=== PATIENT | female | born 1995 ===

== ENCOUNTER → 2018-02-03 | Outpatient (CLI) | payer OTHER ==
[~2018-02-03] MED LIST: DOCU100C37 PO; FERR325T18 PO; IBUP-1780 PO; OXYC-465 PO
--- NOTE | 2018-02-03 17:58 | Diagnostic Imaging Report ---
PROCEDURE: US OB SINGLE FETUS <14 WKS. TECHNIQUE: Multiple real-time grayscale images were obtained over the gravid uterus in various projections. INDICATION: Normal . FINDINGS: There is a single live IUP of approximately 16 weeks 0 days gestation. heart rate was recorded at 142 beats per minute. The placenta appears to be developing anteriorly. Amniotic fluid volume is normal. No perigestational sac hemorrhage is seen. The adnexal evaluation was performed. Ovaries were not visualized. IMPRESSION: Single live IUP at approximately 16 weeks 0 days gestational age. The estimated date of confinement sonographically is 07/21/2018. Dictated by: Dictated on workstation # [id number]
== END ==
LOC: RAD 15:15
PROVIDERS: ATTEND Family Medicine
DX: Z34.92 Encounter for supervision of normal pregnancy, unspecified, second trimester (principal); Z3A.16 16 weeks gestation of pregnancy
CPT/HCPCS: 76801

== ENCOUNTER → 2018-02-28 | Outpatient (CLI) | payer OTHER ==
--- NOTE | 2018-02-28 16:46 | Diagnostic Imaging Report ---
INDICATION: Undergoing anatomical assessment during normal . TECHNIQUE: Multiple real-time grayscale images were obtained over the gravid uterus. COMPARISON: None FINDINGS: Single viable intrauterine currently in a variable presentation. Placenta along the anterior aspect without evidence for previa. Normal amount of amniotic fluid. The visualized anatomical structures appearing unremarkable. However, the spine was not able to adequately be assessed given positioning. Biometrical measurements are as follows: Biparietal 4.37 cm, age 19 weeks 2 days. Head circumference 17.08 cm, age 19 weeks 5 days. Abdominal circumference 14.75 cm, age 20 weeks 1 days. Femur length 3.12 cm, age 19 weeks 5 days. Sonographic estimate age: 19 weeks 5 days. Sonographic estimated date of delivery: . Estimated Weight: 315 gm (+/- 46 gm). LMP percentile: 36%. heart rate: 149 beats per minute. number: 1 of 1. Cervical length 5.5 cm. Maternal adnexa not visualized. IMPRESSION: 1. Single viable intrauterine currently in a variable presentation. Sonographic estimated age 19 weeks 5 days for an estimated date of delivery 07/20/2018. 2. No abnormality is demonstrated at this time. However, the spine is not well visualized given positioning. Dictated by: Dictated on workstation # [id number]
== END ==
LOC: RAD 12:47
PROVIDERS: ATTEND Obstetrics & Gynecology
DX: Z36.89 Encounter for other specified antenatal screening (principal); Z3A.19 19 weeks gestation of pregnancy
CPT/HCPCS: 76805

== ENCOUNTER 2018-07-16 11:24 | Outpatient (CLI) | payer OTHER ==
[~2018-07-16] VITALS: Ht 160 cm; Wt 90.3 kg
[2018-07-16] MEDS ORDERED: PREN1TAB79 PO (12:50)
[2018-07-18] MEDS ORDERED: IBUP-844 PO (07:26)
[2018-07-18] MEDS ORDERED: ACHD5005 PO (07:26)
[2018-07-18] MEDS ORDERED: DOCU100C37 PO (07:26)
== END 2018-07-16 13:00 | disposition home or self-care (01) ==
LOC: PREOP 11:24
PROVIDERS: ATTEND Obstetrics & Gynecology
DX: Z01.818 Encounter for other preprocedural examination (principal)

== ENCOUNTER 2018-07-18 05:52 | Inpatient (IN) | payer BC, MEDICAID ==
[~2018-07-18] VITALS: Ht 160 cm; Wt 99.0 kg
[2018-07-18] VITALS (9 sets, daily range): BP systolic 118–139; BP diastolic 62–92
[~2018-07-18 05:52] MED LIST changes: +CITRIC ACID/SOB CIT (BICITRA) 30 ML UDC ONE; +FAMOTIDINE 20MG/2ML IV (PEPCID) ONE; +METOCLOPRAMIDE INJ 10 MG/2 ML (REGLAN) ONE; +PREN1TAB79 PO; +ceFAZolin 2 GM/50 ML NS 50 ML ONE
--- OUTSIDE RECORDS SUMMARY | 2018-07-18 05:59 | XMS REPORT ---
Author Author BUDDY JOYCE Organization [facility] Address [address] [place] [address] Care Team Providers Care Supervisor In Charge Name Role Phone MARIA DEL CARMENMARKUSBUDDY Unavailable PROBLEMS Type Condition ICD9-CM Code UPI98-EA Code Onset Dates Condition Status SNOMED Code Assessment care, first , third trimester Z34.03 Nov Active 815606326 Assessment screening for streptococcus B Z36 Nov, Active 647359462 Assessment 36 weeks gestation of Z3A.36 Nov, Active 55466637 ALLERGIES No Known Allergies SOCIAL HISTORY No smoking Hx information available PLAN OF CARE VITAL SIGNS Height 63 in 2015-11-18 Weight 194.9 lbs 2015-11-18 Heart Rate 77 bpm 2015-11-18 Respiratory Rate 16 2015-11-18 BMI 34.525 kg/m2 2015-11-18 Blood pressure systolic 127 mmHg 2015-11-18 Blood pressure diastolic 68 mmHg 2015-11-18 MEDICATIONS Medication Instructions Dosage Frequency Start Date End Date Duration Status 28-0.8 MG Orally daily 1 24h Apr, Active Ferrous Sulfate 325 (65 Fe) MG Orally 2 times a day 1 tablet 12h Oct, 30 day(s) Active RESULTS Name Result Date Reference Range UA OB DIP (IN HOUSE) 2015-11-18 Glucose negative Protein negative CULTURE, GROUP B STREP (VAGINAL) 2015-11-18 Strep Gp B Culture Positive Negative PROCEDURES Procedure Date Ordered Related Diagnosis Body Site URINE-NO MICRO Nov 18, 2015 DETECT AGNT MULT, DNA, AMPLI Nov 18, 2015 Office Visit, Est Pt., Level 2 Nov 18, 2015 IMMUNIZATIONS No Known Immunizations
--- OUTSIDE RECORDS SUMMARY | 2018-07-18 05:59 | XMS REPORT ---
Author Author MARIA DEL CARMEN BUDDY [facility] Address [address] [place] [address] Care Team Providers Care Sub Master Name Role Phone MARIA DEL CARMENMARKUS YANGHANY Unavailable PROBLEMS Type Condition ICD9-CM Code UTU06-IA Code Onset Dates Condition Status SNOMED Code Problem History of section complicating O34.219 Active 825415361 Problem Subclinical hypothyroidism E03.9 Active 81362859 ALLERGIES No Information ENCOUNTERS Encounter Location Date Diagnosis [place] [address] [place] [id number] [place] [address] 49[address]- [address] Jan, care, subsequent in first trimester Z34.81 ; 12 weeks gestation of Z3A.12 ; History of section complicating O34.219 and Subclinical hypothyroidism E03.9 [place] [address] [place] [address] 37784- 6046 Dec, [place] [address] [place] [id number] [place] [address] 31387- 4939 Dec, Subclinical hypothyroidism E03.9 [place] [address] [place] [address] [id number] [place] [address] 01145- 8554 Dec, Normal in multigravida Z34.80 ; First trimester Z34.91 ; Encounter for immunization Z23 and 8 weeks gestation of Z3A.08 [place] [address] [place] [address] 97806- 5070 Nov, [place] [address] [place] [address] [id number] [place] [address] 98859- 6899 Nov, Encounter for test, result unknown Z32.00 [place] [address] [place] [id number] [place] [address] 21112- 8785 Jan, Encounter for immunization Z23 [place] [address] [place] [address] 78927- 8692 Jan, nipple pain O92.29 [place] [address] [place] [address] 61075- 7772 05 Dec, 2015 care, first , third trimester Z34.03 and 40 weeks gestation of Z3A.40 [place] [address] [address] [id number] [place] [address] 75395- 5680 27 Nov, 2015 Encounter for immunization Z23 ; care in third trimester Z34.93 ; care, first , third trimester Z34.03 and 38 weeks gestation of Z3A.38 [place] [address] [place] [id number] [place] [address] 29726- 9165 09 Nov, 2015 care, first , third trimester Z34.03 ; screening for streptococcus B Z36 and 36 weeks gestation of Z3A.36 [place] [address] [place] [address] [id number] [place] [address] 19910- 2043 Oct, care, first , third trimester Z34.03 ; 34 weeks gestation of Z3A.34 ; Anemia complicating , third trimester O99.013 and Iron deficiency anemia, unspecified D50.[address] [place] [address] 13247- 9301 Oct, care, first , third trimester Z34.03 ; 32 weeks gestation of Z3A.32 and Encounter for immunization Z23 [place] [address] [place] [address] 43890- 3919 Sep, care in third trimester Z34.93 ; Diabetes mellitus screening Z13.1 ; Screening, iron deficiency anemia Z13.0 and 28 weeks gestation of Z3A.28 [place] [address] [address] Aug, care, second trimester Z34.92 and 25 weeks gestation of Z3A.25 [facility] [address] [place] [address] 64163- 1139 July, care, second trimester Z34.92 and 21 weeks gestation of Z3A.21 [place] [id number] [place] [address] [id number]- 5038 Jun, care, second trimester Z34.92 and 17 weeks gestation of Z3A.[address] [address]- [address] May, [place] [id number] [place] [address] 40485- 5366 May, with 12 completed weeks gestation Z3A.12 ; care, first in first trimester Z34.01 ; Routine screening for STI (sexually transmitted infection) Z11.3 ; Screening for malignant neoplasm of cervix Z12.4 and Needs flu shot Z23 [address] [address]- 5058 Apr, Normal , first Z34.00 ; with 9 completed weeks gestation Z3A.09 ; care, first in first trimester Z34.01 and Dizziness R42 [address] [address]- 5[address] Apr, Encounter for test Z32.00 IMMUNIZATIONS No Known Immunizations SOCIAL HISTORY Never Assessed REASON FOR VISIT 4 week fu-awoods PLAN OF CARE Activity Details Follow Up 4 Weeks Reason: VITAL SIGNS Height 63 in 2018-01-09 Weight 178.5 lbs 2018-01-09 Temperature 98.7 degrees Fahrenheit 2018-01-09 Heart Rate 90 bpm 2018-01-09 Respiratory Rate 18 2018-01-09 BMI 31.62 kg/m2 2018-01-09 Blood pressure systolic 108 mmHg 2018-01-09 Blood pressure diastolic 64 mmHg 2018-01-09 MEDICATIONS Medication Instructions Dosage Frequency Start Date End Date Duration Status Vitamins Active 28-0.8 MG Orally daily 1 24h Apr, Not-Taking RESULTS Name Result Date Reference Range UA OB DIP (IN HOUSE) 2018-01-09 Glucose negative Protein trace PROCEDURES Procedure Date Ordered Result Body Site URINE-NO MICRO Jan 09, 2018 INSTRUCTIONS MEDICATIONS ADMINISTERED No Known Medications MEDICAL (GENERAL) HISTORY Type Description Date Surgical History eye surgery Surgical History C- section x1 12/2015 Hospitalization History Childbirth
--- OUTSIDE RECORDS SUMMARY | 2018-07-18 05:59 | XMS REPORT ---
Author Author GUILLERMO STAUFFER [facility] Address [address] [place] [address] Care Team Providers Care Treating Plant Supervisor Name Role Phone EH GUILLERMO Unavailable PROBLEMS Type Condition ICD9-CM Code BPO09-AY Code Onset Dates Condition Status SNOMED Code Problem Patient is a currently breast-feeding mother Z39.1 Active 429065442 ALLERGIES No Information ENCOUNTERS Encounter Location Date Diagnosis [place] [address] [address] Dec, [place] [address] [address] Nov, [place] [address] [address] Nov, Encounter for test, result unknown Z32.[address] [address]- [address] Jan, Encounter for immunization Z23 [place] [address] [address] Jan, nipple pain O92.29 [place] [address] [address]- [address]14 Dec, care, first , third trimester Z34.03 and 40 weeks gestation of Z3A.40 [place] [address] 16662- 1279 27 Nov, 2015 Encounter for immunization Z23 ; care in third trimester Z34.93 ; care, first , third trimester Z34.03 and 38 weeks gestation of Z3A.38 [place] [address] [address]229 Nov, care, first , third trimester Z34.03 ; screening for streptococcus B Z36 and 36 weeks gestation of Z3A.[address] [place] [address] 35822- 1831 Oct, care, first , third trimester Z34.03 ; 34 weeks gestation of Z3A.34 ; Anemia complicating , third trimester O99.013 and Iron deficiency anemia, unspecified D50.[address] [place] [address] 36872- 3132 Oct, care, first , third trimester Z34.03 ; 32 weeks gestation of Z3A.32 and Encounter for immunization Z23 [place] [id number] [place] [address] 80829- 4482 Sep, care in third trimester Z34.93 ; Diabetes mellitus screening Z13.1 ; Screening, iron deficiency anemia Z13.0 and 28 weeks gestation of Z3A.28 [place] [id number] [place] [address] 16444- 2190 Aug, care, second trimester Z34.92 and 25 weeks gestation of Z3A.[address] [place] [address] 76044- 9167 July, care, second trimester Z34.92 and 21 weeks gestation of Z3A.21 [place] [id number] [place] [address] 23717- 4321 Jun, care, second trimester Z34.92 and 17 weeks gestation of Z3A.17 [place] [id number] [place] [address] 31558- 3753 May, [place] [id number] [place] [address] 09322- 7104 May, with 12 completed weeks gestation Z3A.12 ; care, first in first trimester Z34.01 ; Routine screening for STI (sexually transmitted infection) Z11.3 ; Screening for malignant neoplasm of cervix Z12.4 and Needs flu shot Z23 [facility] [address] [facility] [id number] [address] 29 Apr, 2015 Normal , first Z34.00 ; with 9 completed weeks gestation Z3A.09 ; care, first in first trimester Z34.01 and Dizziness R42 [facility] [address] [facility] [id number] [address] 03 Apr, 2015 Encounter for test Z32.00 IMMUNIZATIONS No Known Immunizations SOCIAL HISTORY Never Assessed REASON FOR VISIT test (walk-in) PLAN OF CARE VITAL SIGNS MEDICATIONS Unknown Medications RESULTS Name Result Date Reference Range TEST, URINE (IN HOUSE) 2017-11-15 RESULTS Positive Lot # [id number] Control + Exp date 03/2019 PROCEDURES Procedure Date Ordered Result Body Site URINE TEST Nov 15, 2017 INSTRUCTIONS MEDICATIONS ADMINISTERED No Known Medications MEDICAL (GENERAL) HISTORY Type Description Date Surgical History eye surgery Surgical History C- section x1 12/2015 Hospitalization History Childbirth
--- OUTSIDE RECORDS SUMMARY | 2018-07-18 05:59 | XMS REPORT ---
Author Author BUDDY JOYCE [employer] Address Unknown Phone Unavailable Care Team Providers Care Business Technology Professor Name Role Phone BUDDY JOYCE Unavailable Allergies No Known Allergies Problems Problem Type Condition Code Onset Dates Condition Status Assessment care in third trimester Z34.93 Active Assessment Diabetes mellitus screening Z13.1 Active Problem care, first , third trimester Z34.03 Active Assessment Screening, iron deficiency anemia Z13.0 Active Assessment 28 weeks gestation of Z3A.28 Active Medications Medication Code System Code Instructions Start Date End Date Status Dosage [facility] [address]283 28-0.8 MG Orally daily May 09, 2015 1 Procedures Procedure Coding System Code Date COMPLETE CBC W/AUTO DIFF WBC CPT-4 08472 September 22, 2015 GLUCOSE TEST CPT-4 12994 September 22, 2015 URINE-NO MICRO CPT-4 19334 September 22, 2015 VENIPUNCT, ROUTINE* CPT-4 16440 September 22, 2015 Office Visit, Est Pt., Level 2 CPT-4 01127 September 22, 2015 Vital Signs Date/Time: September 22, 2015 Cardiac Monitoring Heart Rate 84 bpm Weight 180.1 lbs Height 63 in Blood Pressure Diastolic 75 mmHg Blood Pressure Systolic 123 mmHg Results No Known Results Summary Purpose eClinicalWorks Submission
--- OUTSIDE RECORDS SUMMARY | 2018-07-18 05:59 | XMS REPORT ---
Author Author BUDDY JOYCE [employer] Address Unknown Phone Unavailable Care Team Providers Care Garage Worker Name Role Phone BUDDY JOYCE Unavailable Allergies No Known Allergies Problems Problem Type Condition Code Onset Dates Condition Status Problem care, first , third trimester Z34.03 Active Assessment care, first , third trimester Z34.03 Active Problem Anemia complicating , third trimester O99.013 Active Assessment Iron deficiency anemia, unspecified D50.9 Active Assessment 34 weeks gestation of Z3A.34 Active Assessment Anemia complicating , third trimester O99.013 Active Medications Medication Code System Code Instructions Start Date End Date Status Dosage [facility] 87898-[address]1934 28-0.8 MG Orally daily May 09, 2015 1 Ferrous Sulfate [facility] [address]-09 325 (65 Fe) MG Orally 2 times a day Nov 04, 2015 1 tablet Procedures Procedure Coding System Code Date Office Visit, Est Pt., Level 2 CPT-4 79135 Nov 04, 2015 URINE-NO MICRO CPT-4 11640 Nov 04, 2015 Vital Signs Date/Time: Nov 04, 2015 Blood Pressure Systolic 110 mmHg Weight 192.5 lbs Height 63 in BMI 34.1 Index Blood Pressure Diastolic 78 mmHg Results No Known Results Summary Purpose eClinicalWorks Submission
--- OUTSIDE RECORDS SUMMARY | 2018-07-18 05:59 | XMS REPORT ---
Author Author MARIA DEL CARMEN BUDDY [facility] Address [address] [place] [address] Care Team Providers Care Investigator Internal Affairs Name Role Phone MARIA DEL CARMENMARKUS YANGHANY Unavailable PROBLEMS Type Condition ICD9-CM Code MMS90-TY Code Onset Dates Condition Status SNOMED Code Problem History of section complicating O34.219 Active 595153981 Problem Subclinical hypothyroidism E03.9 Active 15639365 ALLERGIES No Information ENCOUNTERS Encounter Location Date Diagnosis [place] [id number] [place] [address] 20584- 6096 Jan, Subclinical hypothyroidism E03.9 [place] [id number] [place] [address] 06679- 4744 Jan, care, subsequent in first trimester Z34.81 ; 12 weeks gestation of Z3A.12 ; History of section complicating O34.219 and Subclinical hypothyroidism E03.9 [place] [id number] [place] [address] 83849- 2448 Dec, [place] [id number] [place] [address] 22838- 6035 Dec, Subclinical hypothyroidism E03.9 [place] [id number] [place] [address] 10126- 0970 Dec, Normal in multigravida Z34.80 ; First trimester Z34.91 ; Encounter for immunization Z23 and 8 weeks gestation of Z3A.08 [place] [id number] [place] [address] 35455- 7762 Nov, [place] [address] [place] [address] [id number] [place] [address] 51953- 5799 Nov, Encounter for test, result unknown Z32.00 [place] [address] [address] [id number] [place] [address] 88235- 0271 16 Jan, 2017 Encounter for immunization Z23 [address] [address]- [address] Jan, nipple pain O92.[address] 20036- [address] Dec, care, first , third trimester Z34.03 and 40 weeks gestation of Z3A.[address] [address]- [address]30 27 Nov, 2015 Encounter for immunization Z23 ; care in third trimester Z34.93 ; care, first , third trimester Z34.03 and 38 weeks gestation of Z3A.[address] [address]- 1945 09 Nov, 2015 care, first , third trimester Z34.03 ; screening for streptococcus B Z36 and 36 weeks gestation of Z3A.[address] [address]- [address]88 Oct, care, first , third trimester Z34.03 ; 34 weeks gestation of Z3A.34 ; Anemia complicating , third trimester O99.013 and Iron deficiency anemia, unspecified D50.9 [place] [id number] [place] [address] 15839- 7402 Oct, care, first , third trimester Z34.03 ; 32 weeks gestation of Z3A.32 and Encounter for immunization Z23 [address] [address]- [address]162 Sep, care in third trimester Z34.93 ; Diabetes mellitus screening Z13.1 ; Screening, iron deficiency anemia Z13.0 and 28 weeks gestation of Z3A.[address] [address]- [address] Aug, care, second trimester Z34.92 and 25 weeks gestation of Z3A.25 [place] [address] [place] [address] July, care, second trimester Z34.92 and 21 weeks gestation of Z3A.21 [place] [address] [place] [id number] [address] Jun, care, second trimester Z34.92 and 17 weeks gestation of Z3A.17 [place] [address] [place] [address] [id number] [place] [address] 62501- 2513 May, [place] [id number] [place] [address] 86364- 2655 May, with 12 completed weeks gestation Z3A.12 ; care, first in first trimester Z34.01 ; Routine screening for STI (sexually transmitted infection) Z11.3 ; Screening for malignant neoplasm of cervix Z12.4 and Needs flu shot Z23 [place] [address] [place] [address] 9[address]- 0313 29 Apr, 2015 Normal , first Z34.00 ; with 9 completed weeks gestation Z3A.09 ; care, first in first trimester Z34.01 and Dizziness R42 [address] [place] [address] 94541- 5703 03 Apr, 2015 Encounter for test Z32.00 IMMUNIZATIONS No Known Immunizations SOCIAL HISTORY Never Assessed REASON FOR VISIT Lab PLAN OF CARE Activity Details Pending Test TSH w/ FREE T4 VITAL SIGNS MEDICATIONS Unknown Medications RESULTS No Results PROCEDURES Procedure Date Ordered Result Body Site LAB NOT BILLED BY [facility] Jan 23, 2018 INSTRUCTIONS MEDICATIONS ADMINISTERED No Known Medications MEDICAL (GENERAL) HISTORY Type Description Date Surgical History eye surgery Surgical History C- section x1 12/2015 Hospitalization History Childbirth
--- OUTSIDE RECORDS SUMMARY | 2018-07-18 05:59 | XMS REPORT ---
Author Author BUDDY JOYCE Organization [facility] Address [address] [place] [address] Care Team Providers Care Second Cutter Name Role Phone BUDDY JOYCE Unavailable PROBLEMS Type Condition ICD9-CM Code ZGJ82-VQ Code Onset Dates Condition Status SNOMED Code Problem Patient is a currently breast-feeding mother Z39.1 Active 392904727 Assessment nipple pain O92.29 Jan, Active 023245860 ALLERGIES Substance Reaction Event Type Date Status N.K.D.A. Unknown Non Drug Allergy Jan, Unknown SOCIAL HISTORY No smoking Hx information available PLAN OF CARE VITAL SIGNS Height 63 in 2016-02-07 Weight 169.0 lbs 2016-02-07 BMI 29.93 kg/m2 2016-02-07 Blood pressure systolic 110 mmHg 2016-02-07 Blood pressure diastolic 68 mmHg 2016-02-07 MEDICATIONS No Known Medications RESULTS No Results PROCEDURES Procedure Date Ordered Related Diagnosis Body Site Office Visit, Est Pt., Level 3 Feb 07, 2016 IMMUNIZATIONS No Known Immunizations
--- OUTSIDE RECORDS SUMMARY | 2018-07-18 05:59 | XMS REPORT ---
Author Author BUDDY JOYCE eClinicalWorks Address Unknown Phone Unavailable Care Team Providers Care Police Officer Name Role Phone BUDDY JOYCE CP Unavailable Allergies, Adverse Reactions, Alerts Substance Reaction Event Type N.K.D.A. Info Not Available Non Drug Allergy Problems Problem Type Condition Code Onset Dates Condition Status Assessment care, second trimester Z34.92 Active Assessment 17 weeks gestation of Z3A.17 Active Problem care, second trimester Z34.92 Active Medications Medication Code System Code Instructions Start Date End Date Status Dosage [facility] [address] 28-0.8 MG Orally daily May 09, 2015 1 Procedures Procedure Coding System Code Date INHIBIN A CPT-4 74298 July 07, 2015 ASSAY OF ESTRIOL CPT-4 45486 July 07, 2015 ALPHA-FETOPROTEIN, SERUM CPT-4 17947 July 07, 2015 URINE-NO MICRO CPT-4 70332 July 07, 2015 CHORIONIC GONADOTROPIN TEST CPT-4 19101 July 07, 2015 VENIPUNCT, ROUTINE* CPT-4 38504 July 07, 2015 Office Visit, Est Pt., Level 2 CPT-4 71561 July 07, 2015 Vital Signs Date/Time: July 07, 2015 Temperature 99.2 F Weight 166.3 lbs Height 63 in BMI 29.459 Index Blood Pressure Diastolic 72 mmHg Blood Pressure Systolic 116 mmHg Cardiac Monitoring Heart Rate 88 bpm Results No Known Results Summary Purpose eClinicalWorks Submission
--- OUTSIDE RECORDS SUMMARY | 2018-07-18 05:59 | XMS REPORT ---
Author Author MARIA DEL CARMEN BUDDY [facility] Address [address] [place] [address] Care Team Providers Care Station Superintendent Name Role Phone MARIA DEL CARMENMARKUSBUDDY Unavailable PROBLEMS Type Condition ICD9-CM Code RPB20-AN Code Onset Dates Condition Status SNOMED Code Problem Subclinical hypothyroidism E03.9 Active 68467297 Problem Patient is a currently breast-feeding mother Z39.1 Active [id number] ALLERGIES No Information ENCOUNTERS Encounter Location Date Diagnosis [place] [id number] [place] [address] 60971- 3518 Jan, [place] [id number] [place] [address] 32725- 1455 Dec, [place] [id number] [place] [address] 42835- 1471 Dec, Subclinical hypothyroidism E03.9 [place] [id number] [place] [address] 63997- 1970 Dec, Normal in multigravida Z34.80 ; First trimester Z34.91 ; Encounter for immunization Z23 and 8 weeks gestation of Z3A.08 [place] [id number] [place] [address] 18007- 6737 Nov, [place] [id number] [place] [address] 52912- 8238 Nov, Encounter for test, result unknown Z32.00 [place] [id number] [place] [address] 30826- 9566 Jan, Encounter for immunization Z23 [place] [id number] [place] [address] 38240- 9104 29 Nov, 2016 nipple pain O92.29 [place] [address], [place] [address] 05 Dec, 2015 care, first , third trimester Z34.03 and 40 weeks gestation of Z3A.40 [place] [address] [place] [address] 86763- 7011 27 Nov, 2015 Encounter for immunization Z23 ; care in third trimester Z34.93 ; care, first , third trimester Z34.03 and 38 weeks gestation of Z3A.38 [place] [id number] [place] [address] 61042- 9441 09 Nov, 2015 care, first , third trimester Z34.03 ; screening for streptococcus B Z36 and 36 weeks gestation of Z3A.36 [place] [id number] [place] [address] 91513- 8627 Oct, care, first , third trimester Z34.03 ; 34 weeks gestation of Z3A.34 ; Anemia complicating , third trimester O99.013 and Iron deficiency anemia, unspecified D50.9 [place] [id number] [place] [address] 49592- 7517 Oct, care, first , third trimester Z34.03 ; 32 weeks gestation of Z3A.32 and Encounter for immunization Z23 [place] [address] [place] [address] 62527- 9520 Sep, care in third trimester Z34.93 ; Diabetes mellitus screening Z13.1 ; Screening, iron deficiency anemia Z13.0 and 28 weeks gestation of Z3A.28 [place] [id number] [place] [address] 55280- 3358 Aug, care, second trimester Z34.92 and 25 weeks gestation of Z3A.25 [place] [id number] [place] [address] 86886- 3371 July, care, second trimester Z34.92 and 21 weeks gestation of Z3A.21 [place] [address] [place] [id number] [address] 28 Jun, 2015 care, second trimester Z34.92 and 17 weeks gestation of Z3A.17 [place] [address], [place] [address] 31 May, 2015 [place] [id number] [place] [address] 68286- 9148 May, with 12 completed weeks gestation Z3A.12 ; care, first in first trimester Z34.01 ; Routine screening for STI (sexually transmitted infection) Z11.3 ; Screening for malignant neoplasm of cervix Z12.4 and Needs flu shot Z23 [address] [place] [address] 93278- 6558 29 Apr, 2015 Normal , first Z34.00 ; with 9 completed weeks gestation Z3A.09 ; care, first in first trimester Z34.01 and Dizziness R42 [address] [place] [address] 69684- 3143 03 Apr, 2015 Encounter for test Z32.00 IMMUNIZATIONS No Known Immunizations SOCIAL HISTORY Never Assessed REASON FOR VISIT Requests return call PLAN OF CARE VITAL SIGNS MEDICATIONS Unknown Medications RESULTS No Results PROCEDURES No Known procedures INSTRUCTIONS MEDICATIONS ADMINISTERED No Known Medications MEDICAL (GENERAL) HISTORY Type Description Date Surgical History eye surgery Surgical History C- section x1 12/2015 Hospitalization History Childbirth
--- OUTSIDE RECORDS SUMMARY | 2018-07-18 05:59 | XMS REPORT ---
Author Author MARIA DEL CARMEN BUDDY [facility] Address [address] [place] [address] Care Team Providers Care Officer Captain Name Role Phone MARIA DEL CARMENMARKUSBUDDY Unavailable PROBLEMS Type Condition ICD9-CM Code CYX39-ND Code Onset Dates Condition Status SNOMED Code Problem Patient is a currently breast-feeding mother Z39.1 Active 404006580 ALLERGIES No Known Allergies ENCOUNTERS Encounter Location Date Diagnosis [address] 31743- 9176 04 Dec, [address] 13763- 9674 Nov, [address] 98395- 7738 07 Nov, 2017 Encounter for test, result unknown Z32.[address] 93651- 7936 16 Jan, 2017 Encounter for immunization Z23 [place] [id number] [place] [address] 06506- 2096 Jan, nipple pain O92.[address] 03574- 3515 05 Dec, 2015 care, first , third trimester Z34.03 and 40 weeks gestation of Z3A.[address] 61756- 8771 27 Nov, 2015 Encounter for immunization Z23 ; care in third trimester Z34.93 ; care, first , third trimester Z34.03 and 38 weeks gestation of Z3A.[address] 81832- 0539 Nov, care, first , third trimester Z34.03 ; screening for streptococcus B Z36 and 36 weeks gestation of Z3A.36 [address] [place] [address] 22901- 9482 Oct, care, first , third trimester Z34.03 ; 34 weeks gestation of Z3A.34 ; Anemia complicating , third trimester O99.013 and Iron deficiency anemia, unspecified D50.9 [address], [place] [address] Oct, care, first , third trimester Z34.03 ; 32 weeks gestation of Z3A.32 and Encounter for immunization Z23 [address] [place] [address] 48340- 9847 Sep, care in third trimester Z34.93 ; Diabetes mellitus screening Z13.1 ; Screening, iron deficiency anemia Z13.0 and 28 weeks gestation of Z3A.28 [address] [place] [address] 04656- 9761 Aug, care, second trimester Z34.92 and 25 weeks gestation of Z3A.25 [address] [place] [address] 29557- 0388 July, care, second trimester Z34.92 and 21 weeks gestation of Z3A.21 [address] [place] [address] 05685- 8542 Jun, care, second trimester Z34.92 and 17 weeks gestation of Z3A.17 [place] [id number] [place] [address] 77064- 0315 May, [place] [id number] [place] [address] 29977- 5019 May, with 12 completed weeks gestation Z3A.12 ; care, first in first trimester Z34.01 ; Routine screening for STI (sexually transmitted infection) Z11.3 ; Screening for malignant neoplasm of cervix Z12.4 and Needs flu shot Z23 [facility] [address] [facility] [id number] [address] Apr, Normal , first Z34.00 ; with 9 completed weeks gestation Z3A.09 ; care, first in first trimester Z34.01 and Dizziness R42 [facility] [address] [facility] [id number] [address] 03 Apr, 2015 Encounter for test Z32.00 IMMUNIZATIONS No Known Immunizations SOCIAL HISTORY Never Assessed REASON FOR VISIT OB Flowsheet HX PLAN OF CARE VITAL SIGNS MEDICATIONS Medication Instructions Dosage Frequency Start Date End Date Duration Status 28-0.8 MG Orally daily 1 24h Apr, Not-Taking Ferrous Sulfate 325 (65 Fe) MG Orally 2 times a day 1 tablet 12h Oct, 30 day(s) Not-Taking RESULTS No Results PROCEDURES No Known procedures INSTRUCTIONS MEDICATIONS ADMINISTERED No Known Medications MEDICAL (GENERAL) HISTORY Type Description Date Surgical History eye surgery Surgical History C- section x1 12/2015 Hospitalization History Childbirth
--- OUTSIDE RECORDS SUMMARY | 2018-07-18 05:59 | XMS REPORT ---
Author Author BUDDY JOYCE [employer] Address Unknown Phone Unavailable Care Team Providers Care Animal Nursery Worker Name Role Phone BUDDY JOYCE Unavailable Allergies No Known Allergies Problems Problem Type Condition Code Onset Dates Condition Status Assessment 40 weeks gestation of Z3A.40 Active Assessment care, first , third trimester Z34.03 Active Medications Medication Code System Code Instructions Start Date End Date Status Dosage Ferrous Sulfate [facility] [address]-79 325 (65 Fe) MG Orally 2 times a day Nov 04, 2015 1 tablet [facility] 55022-56661 28-0.8 MG Orally daily May 09, 2015 1 Procedures Procedure Coding System Code Date Office Visit, Est Pt., Level 2 CPT-4 70645 Dec 14, 2015 URINE-NO MICRO CPT-4 47735 Dec 14, 2015 Vital Signs Date/Time: Dec 14, 2015 Cardiac Monitoring Heart Rate 92 bpm Weight 201.2 lbs Height 63 in BMI 35.641 Index Blood Pressure Diastolic 76 mmHg Blood Pressure Systolic 119 mmHg Results Name Result Date Reference Range Unit Abnormality Flag UA OB DIP (IN HOUSE) ----Glucose negative 20151214 ----Protein trace [id number] Summary Purpose [employer] Submission
--- OUTSIDE RECORDS SUMMARY | 2018-07-18 05:59 | XMS REPORT ---
Author Author MARIA DEL CARMEN BUDDY [facility] Address [address] [place] [address] Care Team Providers Care Color Expert Name Role Phone MARIA DEL CARMENMARKUSBUDDY Unavailable PROBLEMS Type Condition ICD9-CM Code DCM55-GQ Code Onset Dates Condition Status SNOMED Code Problem Subclinical hypothyroidism E03.9 Active 61827885 Problem Patient is a currently breast-feeding mother Z39.1 Active [id number] ALLERGIES No Information ENCOUNTERS Encounter Location Date Diagnosis [place] [id number] [place] [address] 78100- 7280 Jan, [place] [id number] [place] [address] 98677- 6108 Dec, [place] [id number] [place] [address] 36576- 3393 Dec, Subclinical hypothyroidism E03.9 [place] [id number] [place] [address] 77845- 7545 Dec, Normal in multigravida Z34.80 ; First trimester Z34.91 ; Encounter for immunization Z23 and 8 weeks gestation of Z3A.08 [place] [id number] [place] [address] 18382- 1023 Nov, [place] [id number] [place] [address] 26034- 3433 Nov, Encounter for test, result unknown Z32.00 [place] [id number] [place] [address] 94620- 7567 Jan, Encounter for immunization Z23 [place] [id number] [place] [address] 64606- 8805 29 Nov, 2016 nipple pain O92.29 [place] [address] [address] 4046 05 Dec, 2015 care, first , third trimester Z34.03 and 40 weeks gestation of Z3A.40 [place] [address] [place] [address] 38701- 4966 27 Nov, 2015 Encounter for immunization Z23 ; care in third trimester Z34.93 ; care, first , third trimester Z34.03 and 38 weeks gestation of Z3A.38 [place] [id number] [place] [address] 70508- 5831 09 Nov, 2015 care, first , third trimester Z34.03 ; screening for streptococcus B Z36 and 36 weeks gestation of Z3A.36 [place] [id number] [place] [address] 82206- 5162 Oct, care, first , third trimester Z34.03 ; 34 weeks gestation of Z3A.34 ; Anemia complicating , third trimester O99.013 and Iron deficiency anemia, unspecified D50.9 [place] [id number] [place] [address] 03820- 4352 Oct, care, first , third trimester Z34.03 ; 32 weeks gestation of Z3A.32 and Encounter for immunization Z23 [place] [address] [place] [address] 16203- 9236 Sep, care in third trimester Z34.93 ; Diabetes mellitus screening Z13.1 ; Screening, iron deficiency anemia Z13.0 and 28 weeks gestation of Z3A.28 [place] [id number] [place] [address] 81966- 2769 Aug, care, second trimester Z34.92 and 25 weeks gestation of Z3A.25 [place] [id number] [place] [address] 14483- 3989 July, care, second trimester Z34.92 and 21 weeks gestation of Z3A.21 [place] [address] [place] [id number] [address]- 8572 28 Jun, 2015 care, second trimester Z34.92 and 17 weeks gestation of Z3A.17 [place] [address] [address]- 3991 31 May, 2015 [place] [id number] [place] [address] 06504- 0555 May, with 12 completed weeks gestation Z3A.12 ; care, first in first trimester Z34.01 ; Routine screening for STI (sexually transmitted infection) Z11.3 ; Screening for malignant neoplasm of cervix Z12.4 and Needs flu shot Z23 [address] [place] [address] 39062- 5224 29 Apr, 2015 Normal , first Z34.00 ; with 9 completed weeks gestation Z3A.09 ; care, first in first trimester Z34.01 and Dizziness R42 [address] [place] [address] 96553- 1767 03 Apr, 2015 Encounter for test Z32.00 IMMUNIZATIONS No Known Immunizations SOCIAL HISTORY Never Assessed REASON FOR VISIT Thyroid results PLAN OF CARE VITAL SIGNS MEDICATIONS Unknown Medications RESULTS No Results PROCEDURES No Known procedures INSTRUCTIONS MEDICATIONS ADMINISTERED No Known Medications MEDICAL (GENERAL) HISTORY Type Description Date Surgical History eye surgery Surgical History C- section x1 12/2015 Hospitalization History Childbirth
--- NOTE | 2018-07-18 06:00 | NUR ---
LEE COYLE presented to unit via ambulatory from ED, accompanied by s/o, with c/o PREVIOUS. LEE COYLE weighed, gowned, voided, and to bed. EFHM and TOCO applied, VS taken. LEE COYLE oriented to bed controls, call light, TV, heat, and A/C controls.
--- OUTSIDE RECORDS SUMMARY | 2018-07-18 06:00 | XMS REPORT | Continuity of Care Document ---
Author Organization Unknown Address Unknown Allergies Active Description Code Type Severity Reaction Onset Reported/Identified Relationship to Patient Clinical Status Yes No Known Drug Allergies [id number] Drug Allergy Unknown N/A 12/18/2015 Medications There is no data. Problems Date Dx Coded Attending Type Code Diagnosis Diagnosed By 06/01/2015 PILY MAI PARTS COUNTER SALESPERSON Ot Z34.00 06/20/2015 PILY MAI PARTS COUNTER SALESPERSON Ot Z34.00 06/20/2015 PILY MAI PARTS COUNTER SALESPERSON Ot Z34.00 06/28/2015 PILY MAI PARTS COUNTER SALESPERSON Ot Z34.00 ENCNTR FOR SUPRVSN OF NORMAL FIRST PREGN 06/28/2015 PILY MAI PARTS COUNTER SALESPERSON Ot Z34.00 ENCNTR FOR SUPRVSN OF NORMAL FIRST PREGN 08/02/2015 PILY MAI PARTS COUNTER SALESPERSON Ot Z34.00 ENCNTR FOR SUPRVSN OF NORMAL FIRST PREGN 08/05/2015 PILY MAI PARTS COUNTER SALESPERSON Ot Z34.00 ENCNTR FOR SUPRVSN OF NORMAL FIRST PREGN 08/09/2015 BUDDY JOYCE MD Ot Z34.92 ENCNTR FOR SUPRVSN OF NORMAL PREG, UNSP, 08/10/2015 BUDDY JOYCE MD Ot Z34.92 ENCNTR FOR SUPRVSN OF NORMAL PREG, UNSP, 08/29/2015 BUDDY JOYCE MD Ot Z34.92 ENCNTR FOR SUPRVSN OF NORMAL PREG, UNSP, 09/16/2015 BUDDY JOYCE MD Ot Z34.92 ENCNTR FOR SUPRVSN OF NORMAL PREG, UNSP, 09/19/2015 BUDDY JOYCE MD Ot Z34.92 ENCNTR FOR SUPRVSN OF NORMAL PREG, UNSP, 10/27/2015 PILY MAI PARTS COUNTER SALESPERSON Ot Z34.00 ENCNTR FOR SUPRVSN OF NORMAL FIRST PREGN 10/27/2015 BUDDY JOYCE MD Ot Z34.92 ENCNTR FOR SUPRVSN OF NORMAL PREG, UNSP, 10/27/2015 BUDDY JOYCE MD Ot Z34.92 ENCNTR FOR SUPRVSN OF NORMAL PREG, UNSP, 10/27/2015 BUDDY JOYCE MD Ot Z34.92 ENCNTR FOR SUPRVSN OF NORMAL PREG, UNSP, 10/27/2015 BUDDY JOYCE MD Ot Z34.92 ENCNTR FOR SUPRVSN OF NORMAL PREG, UNSP, 12/19/2015 GUILLERMO STAUFFER DO Ot O47.1 FALSE LABOR AT OR AFTER 37 COMPLETED WEE 12/19/2015 GUILLERMO STAUFFER DO Ot Z3A.40 40 WEEKS GESTATION OF 12/19/2015 PILY MAI APRN Ot Z34.00 ENCNTR FOR SUPRVSN OF NORMAL FIRST PREGN 12/19/2015 BUDDY JOYCE MD Ot Z34.92 ENCNTR FOR SUPRVSN OF NORMAL PREG, UNSP, 12/19/2015 BUDDY JOYCE MD Ot Z34.92 ENCNTR FOR SUPRVSN OF NORMAL PREG, UNSP, 12/19/2015 PILY MAI APRN Ot Z34.00 ENCNTR FOR SUPRVSN OF NORMAL FIRST PREGN 12/19/2015 BUDDY JOYCE MD Ot Z34.92 ENCNTR FOR SUPRVSN OF NORMAL PREG, UNSP, 12/19/2015 BUDDY JOYCE MD Ot Z34.92 ENCNTR FOR SUPRVSN OF NORMAL PREG, UNSP, 12/21/2015 GUILLERMO STAUFFER DO Ot D64.9 ANEMIA, UNSPECIFIED 12/21/2015 GUILLERMO STAUFFER DO Ot O42.02 FULL-TERM ADRIANA ROM, ONSET LABOR WITHIN 2 12/21/2015 GUILLERMO STAUFFER DO Ot O62.2 OTHER UTERINE INERTIA 12/21/2015 GUILLERMO STAUFFER DO Ot O64.0XX0 OBSTRUCTED LABOR DUE TO INCMPL ROTATION 12/21/2015 GUILLERMO STAUFFER DO Ot O76 ABNLT IN HEART RATE AND RHYTHM COM 12/21/2015 GUILLERMO STAUFFER DO Ot O99.03 ANEMIA COMPLICATING THE PUERPERIUM 12/21/2015 GUILLERMO STAUFFER DO Ot O99.824 STREPTOCOCCUS B CARRIER STATE COMPLICATI 12/21/2015 GUILLERMO STAUFFER DO Ot Z37.0 SINGLE LIVE 12/21/2015 GUILLERMO STAUFFER DO Ot Z3A.40 40 WEEKS GESTATION OF 12/22/2015 PILY MAI APRN Ot Z34.00 ENCNTR FOR SUPRVSN OF NORMAL FIRST PREGN 12/22/2015 BUDDY JOYCE MD Ot Z34.92 ENCNTR FOR SUPRVSN OF NORMAL PREG, UNSP, 12/22/2015 BUDDY JOYCE MD Ot Z34.92 ENCNTR FOR SUPRVSN OF NORMAL PREG, UNSP, 12/23/2015 PILY MAI APRN Ot Z34.00 ENCNTR FOR SUPRVSN OF NORMAL FIRST PREGN 12/23/2015 BUDDY JOYCE MD Ot Z34.92 ENCNTR FOR SUPRVSN OF NORMAL PREG, UNSP, 12/23/2015 BUDDY JOYCE MD Ot Z34.92 ENCNTR FOR SUPRVSN OF NORMAL PREG, UNSP, 12/28/2015 GUILLERMO STAUFFER DO Ot O47.1 FALSE LABOR AT OR AFTER 37 COMPLETED WEE 12/28/2015 GUILLERMO STAUFFER DO Ot Z3A.40 40 WEEKS GESTATION OF 01/15/2018 PILY MAI APRN Ot Z34.00 ENCNTR FOR SUPRVSN OF NORMAL FIRST PREGN 01/15/2018 BUDDY JOYCE MD Ot Z34.92 ENCNTR FOR SUPRVSN OF NORMAL PREG, UNSP, 01/15/2018 BUDDY JOYCE MD Ot Z34.92 ENCNTR FOR SUPRVSN OF NORMAL PREG, UNSP, 01/29/2018 PILY MAI APRN Ot Z34.00 ENCNTR FOR SUPRVSN OF NORMAL FIRST PREGN 01/29/2018 BUDDY JOYCE MD Ot Z34.92 ENCNTR FOR SUPRVSN OF NORMAL PREG, UNSP, 01/29/2018 BUDDY JOYCE MD Ot Z34.92 ENCNTR FOR SUPRVSN OF NORMAL PREG, UNSP, 02/03/2018 PILY MAI PARTS COUNTER SALESPERSON Ot Z34.00 ENCNTR FOR SUPRVSN OF NORMAL FIRST PREGN 02/03/2018 BUDDY JOYCE MD Ot Z34.92 ENCNTR FOR SUPRVSN OF NORMAL PREG, UNSP, 02/03/2018 BUDDY JOYCE MD Ot Z34.92 ENCNTR FOR SUPRVSN OF NORMAL PREG, UNSP, 02/03/2018 BUDDY JOYCE MD Ot Z34.92 ENCNTR FOR SUPRVSN OF NORMAL PREG, UNSP, 02/03/2018 BUDDY JOYCE MD Ot Z3A.16 16 WEEKS GESTATION OF 02/04/2018 PILY MAI APRN Ot Z34.00 ENCNTR FOR SUPRVSN OF NORMAL FIRST PREGN 02/04/2018 BUDDY JOYCE MD Ot Z34.92 ENCNTR FOR SUPRVSN OF NORMAL PREG, UNSP, 02/04/2018 BUDDY JOYCE MD Ot Z34.92 ENCNTR FOR SUPRVSN OF NORMAL PREG, UNSP, 02/04/2018 BUDDY JOYCE MD Ot Z34.92 ENCNTR FOR SUPRVSN OF NORMAL PREG, UNSP, 02/04/2018 BUDDY JOYCE MD Ot Z3A.16 16 WEEKS GESTATION OF 02/25/2018 BUDDY JOYCE MD Ot Z34.92 ENCNTR FOR SUPRVSN OF NORMAL PREG, UNSP, 02/25/2018 BUDDY JOYCE MD Ot Z3A.16 16 WEEKS GESTATION OF 03/01/2018 YADIECH DOSPENCER S Ot Z36.89 ENCOUNTER FOR OTHER SPECIFIED 03/01/2018 FENECH DO SPENCER S Ot Z3A.19 19 WEEKS GESTATION OF 03/19/2018 YADIECH SPENCER JUÁREZ S Ot Z36.89 ENCOUNTER FOR OTHER SPECIFIED 03/19/2018 YADIECH DOSPENCER S Ot Z3A.19 19 WEEKS GESTATION OF Procedures Code Description Performed By Performed On [id number] EXTRACTION OF POC, LOW CERVICAL, OPEN AP 12/19/2015 [id number] INTRODUCTION OF OTH HORMONE INTO PERIPH 12/19/2015 Results Test Result Range Strep Gp B Culture - 11/18/15 12:31 Strep Gp B Culture Positive Negative Complete urinalysis with reflex to culture - 12/18/15 23:10 Urine color determination YELLOW NRG Urine clarity determination CLEAR NRG Urine pH measurement by test strip 6.5 5-9 Specific gravity of urine by test strip 1.010 1.016- 1.022 Urine protein assay by test strip, semi-quantitative NEGATIVE NEGATIVE Urine glucose detection by automated test strip NEGATIVE NEGATIVE Erythrocytes detection in urine sediment by light microscopy 5+ NEGATIVE Urine ketones detection by automated test strip NEGATIVE NEGATIVE Urine nitrite detection by test strip NEGATIVE NEGATIVE Urine total bilirubin detection by test strip NEGATIVE NEGATIVE Urine urobilinogen measurement by automated test strip (mass/volume) NORMAL NORMAL Urine leukocyte esterase detection by dipstick 2+ NEGATIVE Automated urine sediment erythrocyte count by microscopy (number/high power field) [HPF] NRG Automated urine sediment leukocyte count by microscopy (number/high power field ) [HPF] NRG Bacteria detection in urine sediment by light microscopy FEW NRG Squamous epithelial cells detection in urine sediment by light microscopy 2-5 NRG Crystals detection in urine sediment by light microscopy NONE NRG Casts detection in urine sediment by light microscopy NONE NRG Mucus detection in urine sediment by light microscopy NEGATIVE NRG Complete urinalysis with reflex to culture YES NRG Bacterial urine culture - 12/18/15 23:10 URINE CULTURE RESULTS <10,000/ML [facility] [id number] - 12/19/15 00:10 [id number] SPECIMEN AVAILABLE [facility] Complete blood count (CBC) with automated white blood cell (WBC) differential - 12/19/15 00:10 Blood leukocytes automated count (number/volume) 22.4 10*3/uL 4.3-11.0 Blood erythrocytes automated count (number/volume) 4.37 10*6/uL 4.35-5.85 Venous blood hemoglobin measurement (mass/volume) 11.5 g/dL 11.5-16.0 Blood hematocrit (volume fraction) 37 % 35-52 Automated erythrocyte mean corpuscular volume 85 [foz_us] 80-99 Automated erythrocyte mean corpuscular hemoglobin (mass per erythrocyte) 26 pg 25-34 Automated erythrocyte mean corpuscular hemoglobin concentration measurement ( mass/volume) 31 g/dL 32-36 Automated erythrocyte distribution width ratio 17.1 % 10.0-14.5 Automated blood platelet count (count/volume) 357 10*3/uL 130-400 Automated blood platelet mean volume measurement 12.6 [foz_us] 7.4-10.4 Automated blood neutrophils/100 leukocytes 82 % 42-75 Automated blood lymphocytes/100 leukocytes 12 % 12-44 Blood monocytes/100 leukocytes 6 % 0-12 Automated blood eosinophils/100 leukocytes 0 % 0-10 Automated blood basophils/100 leukocytes 0 % 0-10 Blood neutrophils automated count (number/volume) 18.3 10*3 1.8-7.8 Blood lymphocytes automated count (number/volume) 2.7 10*3 1.0-4.0 Blood monocytes automated count (number/volume) 1.3 10*3 0.0-1.0 Automated eosinophil count 0.1 10*3/uL 0.0-0.3 Automated blood basophil count (count/volume) 0.0 10*3/uL 0.0-0.1 Blood manual differential performed detection - 12/19/15 00:10 Blood monocytes/100 leukocytes 9 % NRG Manual blood segmented neutrophils/100 leukocytes 80 % NRG Blood band neutrophils/100 leukocytes 5 % NRG Manual blood lymphocytes/100 leukocytes 6 % NRG Manual eosinophils/100 leukocytes in nose 0 % NRG Manual blood basophils/100 leukocytes 0 % NRG Blood anisocytosis detection by light microscopy MODERATE NRG Blood type T Indirect antibody screen panel - 12/19/15 00:10 ABO+Rh group OP NRG Transfusion band number #[id number] NRG Blood group antibody screen NEGATIVE NRG Bacteria identification in isolate by anaerobe culture - 12/19/15 23:37 FREE TEXT EXTERNAL GRAM NEGATIVE, PROBABLE VEILLONELLA NRG QUANTITY OF GROWTH Scant Growth NRG Bacteria identification in isolate by anaerobe culture [id number] NRG Gram stain microscopy - 12/19/15 23:37 GRAM STAIN RESULT FEW WBC'S, NO BACTERIA OBSERVED NRG Bacteria identification in wound by culture - 12/19/15 23:37 Bacteria identification in wound by culture [id number] NRG QUANTITY OF GROWTH Scant Growth NRG Complete blood count (CBC) with automated white blood cell (WBC) differential - 12/20/15 06:16 Blood leukocytes automated count (number/volume) 25.5 10*3/uL 4.3-11.0 Blood erythrocytes automated count (number/volume) 3.23 10*6/uL 4.35-5.85 Venous blood hemoglobin measurement (mass/volume) 8.5 g/dL 11.5-16.0 Blood hematocrit (volume fraction) 27 % 35-52 Automated erythrocyte mean corpuscular volume 84 [foz_us] 80-99 Automated erythrocyte mean corpuscular hemoglobin (mass per erythrocyte) 26 pg 25-34 Automated erythrocyte mean corpuscular hemoglobin concentration measurement ( mass/volume) 31 g/dL 32-36 Automated erythrocyte distribution width ratio 16.5 % 10.0-14.5 Automated blood platelet count (count/volume) 324 10*3/uL 130-400 Automated blood platelet mean volume measurement 11.8 [foz_us] 7.4-10.4 Automated blood neutrophils/100 leukocytes 84 % 42-75 Automated blood lymphocytes/100 leukocytes 10 % 12-44 Blood monocytes/100 leukocytes 6 % 0-12 Automated blood eosinophils/100 leukocytes 0 % 0-10 Automated blood basophils/100 leukocytes 0 % 0-10 Blood neutrophils automated count (number/volume) 21.5 10*3 1.8-7.8 Blood lymphocytes automated count (number/volume) 2.5 10*3 1.0-4.0 Blood monocytes automated count (number/volume) 1.5 10*3 0.0-1.0 Automated eosinophil count 0.0 10*3/uL 0.0-0.3 Automated blood basophil count (count/volume) 0.0 10*3/uL 0.0-0.1 Complete blood count (CBC) with automated white blood cell (WBC) differential - 12/21/15 05:18 Blood leukocytes automated count (number/volume) 18.8 10*3/uL 4.3-11.0 Blood erythrocytes automated count (number/volume) 2.88 10*6/uL 4.35-5.85 Venous blood hemoglobin measurement (mass/volume) 7.6 g/dL 11.5-16.0 Blood hematocrit (volume fraction) 24 % 35-52 Automated erythrocyte mean corpuscular volume 85 [foz_us] 80-99 Automated erythrocyte mean corpuscular hemoglobin (mass per erythrocyte) 26 pg 25-34 Automated erythrocyte mean corpuscular hemoglobin concentration measurement ( mass/volume) 31 g/dL 32-36 Automated erythrocyte distribution width ratio 17.0 % 10.0-14.5 Automated blood platelet count (count/volume) 284 10*3/uL 130-400 Automated blood platelet mean volume measurement 10.9 [foz_us] 7.4-10.4 Automated blood neutrophils/100 leukocytes 78 % 42-75 Automated blood lymphocytes/100 leukocytes 15 % 12-44 Blood monocytes/100 leukocytes 8 % 0-12 Automated blood eosinophils/100 leukocytes 0 % 0-10 Automated blood basophils/100 leukocytes 0 % 0-10 Blood neutrophils automated count (number/volume) 14.6 10*3 1.8-7.8 Blood lymphocytes automated count (number/volume) 2.7 10*3 1.0-4.0 Blood monocytes automated count (number/volume) 1.4 10*3 0.0-1.0 Automated eosinophil count 0.1 10*3/uL 0.0-0.3 Automated blood basophil count (count/volume) 0.0 10*3/uL 0.0-0.1 CULTURE, GENITAL - 12/12/17 15:30 CULTURE, GENITAL SEE NOTE NRG TSH w/ FREE T4 - 01/23/18 11:50 TSH 1.41 mIU/L NRG T4, FREE 0.8 ng/dL 0.8-1.8 Encounters ACCT No. Visit Date/Time Discharge Status Pt. Type Provider Facility Loc./Unit Complaint [id number] 02/28/2018 12:47:00 02/28/2018 23:59:59 CLS Outpatient SPENCER BROCK DO [facility] RAD [id number] 02/03/2018 15:15:00 02/03/2018 23:59:59 CLS Outpatient BUDDY JOYCE MD [facility] RAD NORMAL IN MULTIGRAVIDA [id number] 12/19/2015 10:57:00 12/21/2015 17:10:00 DIS Inpatient GUILLERMO STAUFFER DO [facility] LDRP [place] 40 WKS PREG [id number] 12/18/2015 22:57:00 12/19/2015 09:30:00 DIS Outpatient GUILLERMO STAUFFER DO [facility] WSo CONTRACTIONS [id number] 09/14/2015 13:34:00 09/14/2015 23:59:59 CLS Outpatient BUDDY JOYCE MD [facility] RAD F/U CORD INSERTION. Z34.92 [id number] 08/05/2015 12:55:00 08/05/2015 23:59:59 CLS Outpatient BUDDY JOYCE MD [facility] RAD SURVEY [id number] 05/13/2015 11:02:00 05/13/2015 23:59:59 CLS Outpatient PILY MAI APRN [facility] RAD DATING [id number] 01/24/2017 15:20:00 01/24/2017 23:59:59 CLS Outpatient SNEHA LÓPEZ [facility] [id number] 01/23/2018 11:40:00 Document Registration [id number] 12/12/2017 14:00:00 Document Registration [id number] 11/21/2015 18:06:00 Document Registration
[2018-07-18] MEDS ORDERED: LACTATED RINGERS 1,000 ML IV PRN (06:04)
[2018-07-18] MEDS ORDERED: CATHETER FLUSH 10 ML SYR IV PRN (06:15)
[2018-07-18] MEDS ORDERED: FAMOTIDINE 20MG/2ML IV (PEPCID) IV ONE (06:15)
[2018-07-18] MEDS ORDERED: CITRIC ACID/SOB CIT (BICITRA) 30 ML UDC PO ONE (06:15)
[2018-07-18] MEDS ORDERED: ceFAZolin 2 GM/50 ML NS 50 ML IV ONE (06:15)
[2018-07-18] MEDS ORDERED: METOCLOPRAMIDE INJ 10 MG/2 ML (REGLAN) IV ONE (06:15)
[2018-07-18] MEDS: LACTATED RINGERS 1,000 ML IV PRN ×3 (06:37→07:55)
[2018-07-18 06:39] LABS: BASOPHILS % (AUTO) 0 % (0-10); EOSINOPHILS # (AUTO) 0.1 10^3/uL (0.0-0.3); EOSINOPHILS % (AUTO) 1 % (0-10); HEMATOCRIT 36 % (35-52); HEMOGLOBIN 11.5 G/DL (11.5-16.0); LYMPHOCYTES # (AUTO) 2.9 X 10^3 (1.0-4.0); LYMPHOCYTES % (AUTO) 20 % (12-44); MEAN CORPUSCULAR HEMOGLOBIN 27 PG (25-34); MEAN CORPUSCULAR HGB CONC 32 G/DL (32-36); MEAN CORPUSCULAR VOLUME 84 FL (80-99); MEAN PLATELET VOLUME 11.9 FL (7.4-10.4); MONOCYTES % (AUTO) 7 % (0-12); NEUTROPHILS # (AUTO) 10.5 X 10^3 (1.8-7.8); NEUTROPHILS % (AUTO) 72 % (42-75); PLATELET COUNT 275 10^3/uL (130-400); RED CELL DISTRIBUTION WIDTH 15.2 % (10.0-14.5); WHITE BLOOD COUNT 14.5 10^3/uL (4.3-11.0)
--- NOTE | 2018-07-18 06:50 | History & Physical-OB ---
OB - Chief Complaint & HPI Date/Time Date of Admission: Date of Admission: July 18, 2018 at 05:52 Date seen by a Provider: July 18, 2018 Time Seen by a Provider: 07:00 Chief Complaint/History OB-Reason for Admission/Chief: Section Hx : 2 Hx Para: 1 Expected Date of Delivery: July 18, 2018 Indication for : desires repeat Admission Nurse Assessment Rev: Yes History of Labs Opos Antibody neg RI RPR NR HBsAg NR HIV NR GC neg GBS neg Allergies and Home Medications Allergies Coded Allergies: No Known Drug Allergies (Unverified , 07/16/18) Home Medications Vit W-Ca,Fe,FA(<1 mg) 1 Each Tablet, 1 EACH PO DAILY, (Reported) Patient Home Medication List Home Medication List Reviewed: Yes OB - History Hx of Present Care: Yes Ultrasounds: Normal mid trimester US Obstetrical Complications: None Medical Complications: None Delivery History Hx Blood Disorders: No Adverse Rxn to Tranfusion: No (N/A) Patient Past Medical History None Social History/Family History HIV/AIDS: No Sexually Transmitted Disease: No Immunizations Hepatitis A: No Hepatitis B: No Tetanus Booster (TDap): Less than 5yrs Date of Influenza Vaccine: Dec 06, 2015 OB - Admission Exam Physical Exam HEENT: NCAT Heart: Rhythm Normal Lungs: Clear Abdomen: Gravid Extremities: Normal Reflexes: Normal Cervical Dilatation: 1cm Effacement: 50% Station: -3 Membranes: Intact Heart Rate: 130's Accelerations: Accelerations Present Decelerations: No Decelerations Short Term Variability: Present Container Maker Variability: Average (6-25) Contractions on Admission: >10 Minutes Apart Labs Laboratory Tests Test 07/18/18 06:30 Range/Units White Blood Count 14.5 H 4.3-11.0 10^3/uL Red Blood Count 4.27 L 4.35-5.85 10^6/uL Hemoglobin 11.5 11.5-16.0 G/DL Hematocrit 36 35-52 % Mean Corpuscular Volume 84 80-99 FL Mean Corpuscular Hemoglobin 27 25-34 PG Mean Corpuscular Hemoglobin Concent 32 32-36 G/DL Red Cell Distribution Width 15.2 H 10.0-14.5 % Platelet Count 275 130-400 10^3/uL Mean Platelet Volume 11.9 H 7.4-10.4 FL Neutrophils (%) (Auto) 72 42-75 % Lymphocytes (%) (Auto) 20 12-44 % Monocytes (%) (Auto) 7 0-12 % Eosinophils (%) (Auto) 1 0-10 % Basophils (%) (Auto) 0 0-10 % Neutrophils # (Auto) 10.5 H 1.8-7.8 X 10^3 Lymphocytes # (Auto) 2.9 1.0-4.0 X 10^3 Monocytes # (Auto) 1.0 0.0-1.0 X 10^3 Eosinophils # (Auto) 0.1 0.0-0.3 10^3/uL Basophils # (Auto) 0.0 0.0-0.1 10^3/uL OB - Assessment/Plan/Diagnosis Assessment Assessment: section Admission Dx 23 yo @ 40 weeks Previous GBS neg Admission Status: Inpatient Order (span 2 midnights) Reason for Inpatient Admission: repeat Plan Plan: Section SPENCER BROCK DO July 18, 2018 06:50
[2018-07-18] MEDS ORDERED: fentaNYL INJECTION 100 MCG/2 ML AMP ONE (06:57)
--- NOTE | 2018-07-18 07:24 | Discharge Inst-Women's Service ---
Discharge Inst-Women's Serv Depart Medication/Instructions New, Converted or Re-Newed RX: RX on Chart Final Diagnosis POD 2 RLTCS Consults/Follow Up Additional Follow Up: Yes Orders/Referrals Dr. Zelaya in 7-10 days and in 6 weeks Activity Activity: Activity as Tolerated Driving Instructions: No Driving for 1 Week NO SMOKING: NO SMOKING Nothing Inside Vagina: No Douching, No [place], No Tampons Diet Discharge Diet: No Restrictions Symptoms to Report to : Bleeding Excessive, Pain Increased, Fever Over 101 Degrees F, Vaginal Bleeding Increase, Questions/Concerns For Any Problems or Questions: Contact Your Physician Skin/Wound Care Infection Signs and Symptoms: Increased Redness, Foul Odor of Wound, Increased Drainage, Skin Itchy or Has a Rash, Increased Swelling, Temperature Above 101 F Operative Area Clean and Dry: Keep Incision Clean/Dry Stitches/[place]/Dermabond: Dermabond, Care of Stitches Bathing Instructions: SPENCER Carson DO July 18, 2018 07:24
[2018-07-18] MEDS ORDERED: DOCU100C37 PO (07:26)
[2018-07-18] MEDS ORDERED: LIDOCAINE PF 2% 5 ML (XYLOCAINE) VIAL ONE (07:26)
[2018-07-18] MEDS ORDERED: ACHD5005 PO (07:26)
[2018-07-18] MEDS ORDERED: BUPIVACAINE SPINAL 0.75% (SENSORCAINE) 2 ML AMP ONE (07:26)
[2018-07-18] MEDS ORDERED: IBUP-844 PO (07:26)
[2018-07-18] MEDS ORDERED: MEASLES,MUMPS,RUBELLA 1 EA INJ SC SCH (07:30)
[2018-07-18] MEDS ORDERED: TETANUS,DIPTH,PERTUSS P/F (BOOSTRIX) 0.5 ML VIAL IM SCH (07:30)
[2018-07-18] MEDS ORDERED: HYDROcodone/APAP 5 MG/325 MG (LORTAB) TAB PO PRN (07:30)
[2018-07-18] MEDS ORDERED: ONDANSETRON 4 MG/2 ML (SDV) Z0FRAN IVP PRN (07:30)
[2018-07-18] MEDS ORDERED: OXYTOCIN/NORMAL SALINE 1,000 ML IV ONE (07:48)
[2018-07-18] MEDS ORDERED: ROPIVACAINE 5MG/ML 30ML VIAL ONE (07:50)
[2018-07-18] MEDS ORDERED: ONDANSETRON 4 MG/2 ML (SDV) Z0FRAN ONE (08:00)
[2018-07-18] MEDS: OXYTOCIN/NORMAL SALINE 500 ML IV SCH ×2 (08:00→11:18)
[2018-07-18] MEDS ORDERED: KETOROLAC 30 MG/ML VIAL ONE (08:12)
[2018-07-18] MEDS: KETOROLAC 30 MG/ML VIAL IV SCH ×3 (08:30→21:11)
[2018-07-18] MEDS: DOCUSATE SODIUM 100 MG (COLACE) CAP PO SCH ×2 (09:00→21:11)
[2018-07-18] MEDS: D5 LR IV SOLUTION 1,000 ML IV SCH ×2 (12:11→14:03)
[2018-07-18] MEDS ORDERED: CATHETER FLUSH 10 ML SYR IV SCH ×2 (14:00)
--- NOTE | 2018-07-18 18:17 | OPERATIVE REPORT ---
DATE OF SERVICE: 07/18/2018 PREOPERATIVE DIAGNOSES: 1. A 23-year-old G2, P1 at 40 weeks' gestation. 2. Previous section. POSTOPERATIVE DIAGNOSES: 1. A 23-year-old G2, P1 at 40 weeks' gestation. 2. Previous section. 3. Meconium stained fluid. PROCEDURE: Repeat low transverse section. SURGEON: Valdo Brock DO. ANESTHESIA: Spinal. ESTIMATED BLOOD LOSS: 500 mL. URINE OUTPUT: 150 mL clear at the end of the procedure. FLUIDS: 1500 mL lactated Ringer's solution. FINDINGS: A live male weighing 9 pounds 11 ounces, Apgars of 8 and 9. Grossly normal appearing uterus, bilateral fallopian tubes and ovaries. SPECIMENS SENT: None. INDICATIONS FOR PROCEDURE: This 23-year-old female patient who had transferred care to co to attempt a possible . She was found to not be a good candidate by the 39th week with an unfavorable cervix and no signs of labor. We discussed proceeding with repeat , she was agreeable to do so. Risks again were reviewed with the patient in the preoperative area. All of her questions were answered with her present. After all of her questions were answered, consent was obtained. The patient was taken to the operating room. OPERATIVE REPORT IN DETAIL: Once in the operating room, spinal anesthesia was found to be adequate. She was placed in supine position with leftward tilt, prepped and draped in normal sterile fashion. A Pfannenstiel skin incision was then made through the previously existing scar using the knife and carried down to underlying fascia using Bovie cautery. Fascial incision was extended laterally using Bovie cautery. The superior aspect of the fascial incision was then grasped with Gaetano clamps, tented up and dissected off the underlying rectus muscles. The inferior aspect of the fascial incision was then grasped with Gaetano clamps, tented up and dissected off the underlying rectus muscles. The rectus muscles were then dissected down the midline using Sloan scissors. Peritoneum was identified and then entered bluntly and extended using blunt traction. An Naveed ring retractor was placed within the peritoneal incision, which offered excellent lateral sidewall retraction. A low transverse incision was then made to the vesicouterine peritoneum and this was bluntly dissected off the lower uterine segment and then myotomy was proceeded until membranes were encountered, which have meconium staining noted. The uterine incision was extended laterally and superiorly using bandage scissors. The amniotomy was then performed and meconium stained fluid was noted. With gentle fundal pressure, the 's head was elevated up the incision. It was difficult to deliver the infant's head through the incision. Due to the size of the 's head I do end up using a Kiwi vacuum extractor down the sagittal suture line between the anterior and posterior fontanelle. 400 mmHg was applied to the vacuum and the head was then delivered with gentle extension. The nares and oropharynx were then bulb suctioned. Nuchal cord was reduced x1. Anterior and posterior shoulder was delivered. was then brought to the operative field where the cord was clamped and cut and was handed off to nurses in attendance. Cord blood was collected. Three-vessel cord was intact with intact placenta that was spontaneously delivered thereafter. IV Pitocin was initiated to facilitate uterine contraction. Uterine fundus became firmer with bimanual massage. The uterus was exteriorized and cleared of all endometrial clots and debris. I then proceeded with closing the uterine incision using 0 Vicryl suture in a running locked fashion. A second layer of imbricating 0 Monocryl was placed. Excellent hemostasis was noted after doing this. I then placed the uterus back in the pelvis and copiously irrigated the pelvis using normal saline. Once again, there was no active bleeding noted from any of my dissection planes. Interceed antiadhesive was then placed over the low transverse incision. The Naveed retractor was removed. I then proceeded with closing the peritoneum using 3-0 Vicryl suture in running fashion. The rectus muscle reapproximated using 3-0 Vicryl suture in interrupted fashion. The fascia reapproximated using 0 Vicryl suture in running fashion. Subcutaneous tissues were approximated using 3-0 plain interrupted subcutaneous stitch and skin reapproximated using 4-0 Monocryl in a running subcuticular. Dermabond was applied to incision and sterile dressing with adhesive white tape. The patient tolerated the procedure well and was taken to recovery area in stable condition. Lap and sponge counts were correct at the end of procedure and counts were correct as well. Two grams of Ancef given preoperatively for infection prophylaxis. Job ID: [id number] DocumentID: [id number] Dictated Date: 07/18/2018 10:20:26 Fire Equipment Inspector Date: 07/18/2018 18:16:59 Dictated By: VALDO BROCK DO
[2018-07-19 00:30] VITALS: BP 129/78
[2018-07-19 03:25] VITALS: BP 123/74
[2018-07-19] MEDS: KETOROLAC 30 MG/ML VIAL IV SCH (03:25)
[2018-07-19 06:47] LABS: BASOPHILS % (AUTO) 0 % (0-10); EOSINOPHILS # (AUTO) 0.1 10^3/uL (0.0-0.3); EOSINOPHILS % (AUTO) 0 % (0-10); HEMATOCRIT 31 % (35-52); HEMOGLOBIN 9.8 G/DL (11.5-16.0); LYMPHOCYTES # (AUTO) 2.7 X 10^3 (1.0-4.0); LYMPHOCYTES % (AUTO) 17 % (12-44); MEAN CORPUSCULAR HEMOGLOBIN 26 PG (25-34); MEAN CORPUSCULAR HGB CONC 31 G/DL (32-36); MEAN CORPUSCULAR VOLUME 85 FL (80-99); MONOCYTES # (AUTO) 1.1 X 10^3 (0.0-1.0); MONOCYTES % (AUTO) 7 % (0-12); NEUTROPHILS # (AUTO) 12.1 X 10^3 (1.8-7.8); NEUTROPHILS % (AUTO) 76 % (42-75); PLATELET COUNT 276 10^3/uL (130-400)
[2018-07-19 07:06] LABS: EOSINOPHILS % (MANUAL) 2 %; HYPOCHROMASIA SLIGHT; LYMPHOCYTES % (MANUAL) 19 %; MONOCYTES % (MANUAL) 5 %; NEUTROPHILS % (MANUAL) 74 %
[2018-07-19] MEDS ORDERED: IBUPROFEN 600 MG (MOTRIN) TAB PO ONE (07:54)
[2018-07-19 08:01] VITALS: BP 126/76
[2018-07-19] MEDS: DOCUSATE SODIUM 100 MG (COLACE) CAP PO SCH ×2 (08:06→20:25)
--- NOTE | 2018-07-19 08:33 | Anesthesia-Regional Post-Op ---
Regional Patient Condition Mental Status: Alert, Oriented x3 Circulation: Same as Pre-Op Headache: Absent Sensation: Full Recovery Motor Block: Absent Post Op Complications Complications None Follow Up Care/Instructions Patient Instructions None needed. Anesthesia/Patient Condition Patient is doing well, no complaints, stable vital signs, no apparent adverse anesthesia problems. No complications reported per nursing. GREY COPE CRNA July 19, 2018 08:33
--- NOTE | 2018-07-19 09:00 | NUR ---
Dr Zelaya to see patient.
--- NOTE | 2018-07-19 09:07 | Postpartum Progress Note ---
Note Note Day # 1 Subjective: Patient is without complaints. Ambulating, voiding. Tolerating a regular diet without nausea or vomiting. Normal lochia. Pain is well controlled with oral pain medications. Objective: Physical Exam: General - Alert and oriented, no apparent distress Abdomen - Soft, appropriately tender to palpation, non-distended, fundus firm at umbilicus Extremities - no edema, negative Brigette's bilaterally Incision- c/d/i Assessment: POD 1 RLTCS Acute blood loss anemia Plan: Routine care. Encourage breast feeding. Encourage ambulation. Ferrous sulfate supplementation. Plan for discharge tomorrow Vitals - Labs Vital Signs - I&O Vital Signs Date Time Temp Pulse Resp B/P (MAP) Pulse Ox O2 Delivery O2 Flow Rate FiO2 07/19/18 08:01 99.0 87 18 126/76 (93) 97 Room Air 07/19/18 03:25 98.6 96 18 123/74 (90) 97 Room Air 07/19/18 00:30 98.6 104 18 129/78 (95) 96 Room Air 07/18/18 19:30 99.0 95 18 139/92 (108) 98 Room Air 07/18/18 16:28 Room Air 07/18/18 15:30 99.0 100 20 118/69 (85) 96 Room Air 07/18/18 09:30 98.6 78 18 132/83 (99) 100 Room Air 07/18/18 09:20 97.2 20 100 Room Air 07/18/18 09:10 20 100 Room Air I & O 07/19/18 07:00 Intake Total 5000 ml Output Total 1900 ml Balance 3100 ml Labs Laboratory Tests 07/19/18 06:12: White Blood Count 16.0H, Red Blood Count 3.71L, Hemoglobin 9.8L, Hematocrit 31L , Mean Corpuscular Volume 85, Mean Corpuscular Hemoglobin 26, Mean Corpuscular Hemoglobin Concent 31L, Red Cell Distribution Width 16.0H, Platelet Count 276, Mean Platelet Volume 12.0H, Neutrophils (%) (Auto) 76H, Lymphocytes (%) (Auto) 17, Monocytes (%) (Auto) 7, Eosinophils (%) (Auto) 0, Basophils (%) (Auto) 0, Neutrophils # (Auto) 12.1H, Lymphocytes # (Auto) 2.7, Monocytes # (Auto) 1.1H, Eosinophils # (Auto) 0.1, Basophils # (Auto) 0.0, Neutrophils % (Manual) 74, Lymphocytes % (Manual) 19, Monocytes % (Manual) 5, Eosinophils % (Manual) 2, Hypochromasia SLIGHT SPENCER BROCK DO July 19, 2018 9:07 am
[2018-07-19 14:26] VITALS: BP 130/79
[2018-07-19] MEDS: IBUPROFEN 600 MG (MOTRIN) TAB PO SCH ×2 (14:28→20:25)
[2018-07-19 20:25] VITALS: BP 137/90
[2018-07-20 03:25] VITALS: BP 106/65
[2018-07-20] MEDS: IBUPROFEN 600 MG (MOTRIN) TAB PO SCH ×2 (03:25→09:54)
--- NOTE | 2018-07-20 09:40 | Postpartum Progress Note ---
Note Note Day # 2 Subjective: Patient is without complaints. Ambulating, voiding. Tolerating a regular diet without nausea or vomiting. Normal lochia. Pain is well controlled with oral pain medications. Objective: Physical Exam: General - Alert and oriented, no apparent distress Abdomen - Soft, appropriately tender to palpation, non-distended, fundus firm at umbilicus Extremities - no edema, negative Brigette's bilaterally Incision- c/d/i Assessment: POD 2 RLTCS Plan: Routine care. Encourage breast feeding. Encourage ambulation. Ferrous sulfate supplementation. Plan for discharge today Vitals - Labs Vital Signs - I&O Vital Signs Date Time Temp Pulse Resp B/P (MAP) Pulse Ox O2 Delivery O2 Flow Rate FiO2 07/20/18 03:25 99.0 90 18 106/65 (79) 98 Room Air 07/19/18 20:25 99.0 110 18 137/90 (106) 97 Room Air 07/19/18 14:26 97.9 92 18 130/79 (96) 97 Room Air I & O 07/20/18 07:00 Intake Total 1650 ml Output Total 1750 ml Balance -100 ml Labs Microbiology 07/18/18 MRSA Screen - Final, Complete MRSA not isolated SPENCER BROCK DO July 20, 2018 09:40
[2018-07-20 09:52] VITALS: BP 136/90
--- NOTE | 2018-07-20 09:52 | NUR ---
initial shift assessment completed, see interventions for further. abd incision ARANZA with Dermabond intact @ site. no sx's of infection.
[2018-07-20] MEDS: DOCUSATE SODIUM 100 MG (COLACE) CAP PO SCH (09:54)
--- NOTE | 2018-07-20 11:00 | NUR ---
up to shower.
[2018-07-20] MEDS ORDERED: D5 LR IV SOLUTION 1,000 ML IV SCH (11:26)
--- NOTE | 2018-07-20 12:25 | NUR ---
dismissal instructions given, verbalizes understanding. reviewed dismissal medications- dosage and administration schedule. instructed pt to schedule follow up appointment. signature page signed. placed on chart.
--- NOTE | 2018-07-20 13:30 | NUR ---
pt dismissed to private vehicle via w/c with in arms. escorted by BRISEYDA Kothari and . infant placed in rear, transitional car seat. pt stable with no sx's of distress noted.
== END 2018-07-20 13:30 | disposition home or self-care (01) | DRG 787 ==
LOC: LDRP 05:52
PROVIDERS: ADMIT Obstetrics & Gynecology; ATTEND Obstetrics & Gynecology
PROC: 10D00Z1 Extraction of Products of Conception, Low, Open Approach (ICD-10-PCS; principal; 2018-07-18 07:16)
DX: O34.211 Maternal care for low transverse scar from previous cesarean delivery (principal); O90.81 Anemia of the puerperium; D62 Acute posthemorrhagic anemia; O77.0 Labor and delivery complicated by meconium in amniotic fluid; O69.81X0 Labor and delivery complicated by cord around neck, without compression, not applicable or unspecified; Z3A.40 40 weeks gestation of pregnancy; Z37.0 Single live birth
CPT/HCPCS: 36415; 85007; 85025; 85027; 86850; 86900; 86901; 87081; 94664

== ENCOUNTER 2020-05-06 05:30 | Outpatient (RCR) | payer BC, MEDICAID ==
[~2020-05-06] VITALS: Ht 160 cm; Wt 99.5 kg
[~2020-05-06 05:30] MED LIST changes: +ACHD5005 PO; -CITRIC ACID/SOB CIT (BICITRA) 30 ML UDC ONE; -FAMOTIDINE 20MG/2ML IV (PEPCID) ONE; +IBUP-844 PO; -METOCLOPRAMIDE INJ 10 MG/2 ML (REGLAN) ONE; -OXYC-465 PO; +OXYC-556 PO; -ceFAZolin 2 GM/50 ML NS 50 ML ONE
== END 2020-05-06 12:29 | disposition home or self-care (01) ==
LOC: PREOP 05:30
PROVIDERS: ATTEND Obstetrics & Gynecology
DX: Z01.812 Encounter for preprocedural laboratory examination (principal); O34.219 Maternal care for unspecified type scar from previous cesarean delivery; Z20.822 Contact with and (suspected) exposure to COVID-19
CPT/HCPCS: 87635

== ENCOUNTER 2020-05-10 10:00 | Inpatient (IN) | payer BC, MEDICAID ==
[~2020-05-10] VITALS: Ht 160 cm; Wt 99.0 kg
[2020-05-10] VITALS (9 sets, daily range): BP systolic 104–141; BP diastolic 56–108
[~2020-05-10 10:00] MED LIST changes: +CITRIC ACID/SOB CIT (BICITRA) 30 ML UDC ONE; +FAMOTIDINE 20MG/2ML IV (PEPCID) ONE; +LACTATED RINGERS 1,000 ML IV ONE; +METOCLOPRAMIDE INJ 10 MG/2 ML (REGLAN) ONE; +ceFAZolin 2 GM IV Premixed 50 ML ONE
[2020-05-10] MEDS ORDERED: ceFAZolin 2 GM IV Premixed 50 ML IV ONE (10:45)
[2020-05-10] MEDS ORDERED: OXYTOCIN PRE-MIX DRIP 1,000 ML IV ONE (11:10)
[2020-05-10] MEDS ORDERED: BUPIVACAINE 0.5% 30 ML (SENSORCAINE) VIAL ONE (11:10)
[2020-05-10] MEDS ORDERED: fentaNYL INJECTION 100 MCG/2 ML AMP ONE (11:10)
[2020-05-10 11:14] LABS: BASOPHILS # (AUTO) 0.1 10^3/uL (0.0-0.1); BASOPHILS % (AUTO) 0 % (0-10); EOSINOPHILS # (AUTO) 0.2 10^3/uL (0.0-0.3); EOSINOPHILS % (AUTO) 1 % (0-10); HEMATOCRIT 35 % (35-52); HEMOGLOBIN 11.1 g/dL (11.5-16.0); LYMPHOCYTES # (AUTO) 2.8 10^3/uL (1.0-4.0); LYMPHOCYTES % (AUTO) 19 % (12-44); MEAN CORPUSCULAR HEMOGLOBIN 27 pg (25-34); MEAN CORPUSCULAR HGB CONC 32 g/dL (32-36); MEAN CORPUSCULAR VOLUME 86 fL (80-99); MEAN PLATELET VOLUME 11.3 fL (9.0-12.2); MONOCYTES # (AUTO) 0.7 10^3/uL (0.0-1.0); MONOCYTES % (AUTO) 5 % (0-12); NEUTROPHILS # (AUTO) 10.5 10^3/uL (1.8-7.8); NEUTROPHILS % (AUTO) 73 % (42-75); PLATELET COUNT 313 10^3/uL (130-400); WHITE BLOOD COUNT 14.3 10^3/uL (4.3-11.0)
[2020-05-10] MEDS ORDERED: CATHETER FLUSH 10 ML SYR IV PRN (11:30)
[2020-05-10] MEDS ORDERED: METOCLOPRAMIDE INJ 10 MG/2 ML (REGLAN) IV ONE (11:30)
[2020-05-10] MEDS ORDERED: CITRIC ACID/SOB CIT (BICITRA) 30 ML UDC PO ONE (11:30)
[2020-05-10 11:50] LABS: BAND NEUTROPHILS 4 %; BASOPHILS % (MANUAL) 0 %; EOSINOPHILS % (MANUAL) 0 %; LYMPHOCYTES % (MANUAL) 15 %; MONOCYTES % (MANUAL) 3 %; NEUTROPHILS % (MANUAL) 78 %
[2020-05-10 11:51] LABS: RBC MORPH NORMAL
--- NOTE | 2020-05-10 12:31 | History & Physical-OB ---
OB - Chief Complaint & HPI Date/Time Date of Admission: Date of Admission: May 10, 2020 at 10:00 Date seen by a Provider: May 10, 2020 Time Seen by a Provider: 12:00 Chief Complaint/History OB-Reason for Admission/Chief: Section Hx : 3 Hx Para: 2 Expected Date of Delivery: May 17, 2020 Gestational Age in Weeks: 39 Indication for : desires repeat Admission Nurse Assessment Rev: Yes Allergies and Home Medications Allergies Coded Allergies: No Known Drug Allergies (Unverified , 07/16/18) Home Medications Vit W-Ca,Fe,FA(<1 mg) 1 Each Tablet, 1 EACH PO DAILY, (Reported) Patient Home Medication List Home Medication List Reviewed: Yes OB - History Hx of Present Care: Yes Ultrasounds: Normal mid trimester US Obstetrical Complications: None Medical Complications: None Delivery History Hx Blood Disorders: No Adverse Rxn to Tranfusion: No (N/A) Patient Past Medical History None Immunizations Hepatitis A: No Hepatitis B: No Tetanus Booster (TDap): Less than 5yrs Date of Influenza Vaccine: Dec 09, 2019 OB - Admission Exam Physical Exam HEENT: NCAT Heart: Rhythm Normal Lungs: Clear Abdomen: Gravid Extremities: Normal Reflexes: Normal Heart Rate: 130's Accelerations: Accelerations Present Decelerations: No Decelerations Short Term Variability: Present [employer] Control Clerk Variability: Average (6-25) Contractions on Admission: >10 Minutes Apart Labs Laboratory Tests Test 05/10/20 10:55 Range/Units White Blood Count 14.3 H 4.3-11.0 10^3/uL Red Blood Count 4.06 3.80-5.11 10^6/uL Hemoglobin 11.1 L 11.5-16.0 g/dL Hematocrit 35 35-52 % Mean Corpuscular Volume 86 80-99 fL Mean Corpuscular Hemoglobin 27 25-34 pg Mean Corpuscular Hemoglobin Concent 32 32-36 g/dL Red Cell Distribution Width 13.5 10.0-14.5 % Platelet Count 313 130-400 10^3/uL Mean Platelet Volume 11.3 9.0-12.2 fL Immature Granulocyte % (Auto) 1 % Neutrophils (%) (Auto) 73 42-75 % Lymphocytes (%) (Auto) 19 12-44 % Monocytes (%) (Auto) 5 0-12 % Eosinophils (%) (Auto) 1 0-10 % Basophils (%) (Auto) 0 0-10 % Neutrophils # (Auto) 10.5 H 1.8-7.8 10^3/uL Lymphocytes # (Auto) 2.8 1.0-4.0 10^3/uL Monocytes # (Auto) 0.7 0.0-1.0 10^3/uL Eosinophils # (Auto) 0.2 0.0-0.3 10^3/uL Basophils # (Auto) 0.1 0.0-0.1 10^3/uL Immature Granulocyte # (Auto) 0.1 0.0-0.1 10^3/uL Neutrophils % (Manual) 78 % Lymphocytes % (Manual) 15 % Monocytes % (Manual) 3 % Eosinophils % (Manual) 0 % Basophils % (Manual) 0 % Myelocytes % % Band Neutrophils 4 % Blood Morphology Comment NORMAL OB - Assessment/Plan/Diagnosis Assessment Assessment: section Admission Dx 25 yo @ 39 weeks Previous x 2 GBS pos Admission Status: Inpatient Order (span 2 midnights) Reason for Inpatient Admission: Repeat Plan Plan: Section SPENCER BROCK DO May 10, 2020 12:31
--- NOTE | 2020-05-10 12:34 | Discharge Inst-Women's Service ---
Discharge Inst-Women's Serv Depart Medication/Instructions New, Converted or Re-Newed RX: RX on Chart Final Diagnosis POD 2 RLTCS Problems Reviewed?: Yes Consults/Follow Up Additional Follow Up: Yes Orders/Referrals Dr. Zelaya in 7-[address] Herzog in 6 weeks Activity Activity: Activity as Tolerated Driving Instructions: No Driving for 1 Week NO SMOKING: NO SMOKING Nothing Inside Vagina: No Douching, No [place], No Tampons Diet Discharge Diet: No Restrictions Symptoms to Report to : Bleeding Excessive, Pain Increased, Fever Over 101 Degrees F, Vaginal Bleeding Increase, Questions/Concerns For Any Problems or Questions: Contact Your Physician Skin/Wound Care Infection Signs and Symptoms: Increased Redness, Foul Odor of Wound, Increased Drainage, Skin Itchy or Has a Rash, Increased Swelling, Temperature Above 101 F Operative Area Clean and Dry: Keep Incision Clean/Dry Stitches/[place]/Dermabond: Dermabond, Care of Stitches Bathing Instructions: SPENCER Carson DO May 10, 2020 12:34
[2020-05-10] MEDS ORDERED: ACHD5005 PO (12:35)
[2020-05-10] MEDS ORDERED: IBUP-844 PO (12:35)
[2020-05-10] MEDS ORDERED: DCS100C PO (12:35)
[2020-05-10] MEDS ORDERED: TETANUS,DIPTH,PERTUSS P/F (BOOSTRIX) 0.5 ML VIAL IM SCH (12:45)
[2020-05-10] MEDS ORDERED: ONDANSETRON 4 MG/2 ML (SDV) Z0FRAN IVP PRN (12:45)
[2020-05-10] MEDS ORDERED: MEASLES,MUMPS,RUBELLA 1 EA INJ SC SCH (12:45)
[2020-05-10] MEDS ORDERED: HYDROcodone/APAP 5 MG/325 MG (LORTAB) TAB PO PRN (12:45)
[2020-05-10] MEDS ORDERED: PHENYLEPHRINE 100 MCG/ML 10 ML (ANESTHESIA) SYR ONE (12:59)
[2020-05-10] MEDS ORDERED: METHYLERGONOVINE 0.2 MG/ML (METHERGINE) AMP ONE ×3 (13:02→13:06)
[2020-05-10] MEDS ORDERED: diphenhydrAMINE 50 MG/ML INJ (BENADRYL) IV PRN (13:30)
[2020-05-10] MEDS ORDERED: NALOXONE 0.4 MG/ML 1 ML (NARCAN) VIAL IV PRN (13:30)
[2020-05-10] MEDS ORDERED: ONDANSETRON 4 MG/2 ML (SDV) Z0FRAN IV PRN (13:30)
[2020-05-10] MEDS: KETOROLAC 30 MG/ML VIAL IV SCH ×2 (14:56→21:15)
[2020-05-10] MEDS: OXYTOCIN PRE-MIX DRIP 500 ML IV SCH (14:57)
--- NOTE | 2020-05-10 19:02 | OPERATIVE REPORT ---
DATE OF SERVICE: 05/10/2020 PREOPERATIVE DIAGNOSES: 1. A 25-year-old G3, P2 at 39 weeks gestation. 2. Previous section x2. POSTOPERATIVE DIAGNOSES: 1. A 25-year-old G3, P2 at 39 weeks gestation. 2. Previous section x2. PROCEDURE: Repeat low transverse section. SURGEON: Valdo Brock DO ANESTHESIA: Spinal. ESTIMATED BLOOD LOSS: 800 mL. URINE OUTPUT: 80 mL clear at the end of the procedure. FLUIDS: 700 mL lactated Ringer's solution. FINDINGS: A live male weighing 9 pounds 12 ounces, Apgars were pending. Grossly normal appearing uterus, bilateral fallopian tubes and ovaries. SPECIMEN SENT: None. INDICATIONS FOR PROCEDURE: This 25-year-old female is a patient who had sought care at the [facility] and Dr. Leola Herzog's care, it was uncomplicated with the exception of needing a repeat . She had been counseled about this in her preoperative visit and actually I had performed her prior , so she was well aware of the risks and benefits of the in detail. After all of her questions were answered in the preoperative area, consent was obtained, the patient was taken to the operating room. OPERATIVE REPORT IN DETAIL: Once in the operating room, spinal analgesia was found to be adequate. She was placed in the supine position with leftward tilt, prepped and draped in normal sterile fashion. Timeout was performed and anesthesia was tested. I then make a Pfannenstiel skin incision through the previously existing scar using a knife and carried down to the underlying fascia using Bovie cautery. The fascial incision extended laterally using Bovie cautery. Superior aspect of the fascial incision was then grasped with Gaetano clamps, tented upward and dissected off the underlying rectus muscles. The inferior aspect of the fascial incision was then grasped with Gaetano clamps, tented up and dissected off the underlying rectus muscles. The rectus muscles were then dissected sharply down the midline using Sloan scissors, which exposed the peritoneum, which I entered bluntly and extended using blunt traction. I then placed an Naveed ring retractor within the peritoneal incision, which offers excellent lateral sidewall retraction. I identified the lower uterine segment, which was found to be thinned out and make a low transverse incision to the vesicouterine peritoneum and bluntly dissected off the lower uterine segment. I proceeded with myotomy until membranes were visualized, at which point I extended the uterine incision laterally and superiorly using bandage scissors. Amniotomy was then performed. Clear fluid was noted. The was found in vertex presentation. With gentle fundal pressure, the 's head was elevated up the incision were it was delivered through the incision. The nares and oropharynx were bulb suctioned. Nuchal cord was reduced x1. Anterior and posterior shoulders were delivered and the was then brought to the operative field where the cord was doubly clamped and cut and infant was handed off to waiting nurses in attendance and Dr. Herzog, who was present for delivery. Cord blood was collected, 3-vessel cord with intact placenta was delivered spontaneously thereafter. IV Pitocin was initiated to facilitate uterine contraction. Uterine fundus confirmed by manual massage. Uterus was then exteriorized and cleared of all endometrial clots and debris. I then proceeded with closing the uterine incision using 0 Vicryl suture in a running locked fashion. Second layer of imbricating 0 Monocryl was placed. Excellent hemostasis was noted after doing this. I then placed the uterus back within the pelvis and copiously irrigated the pelvis using normal saline. Once again, there was no active bleeding noted from any of my dissection planes. I placed Interceed antiadhesive over my low transverse incision then proceeded with removing the Naveed ring retractor and closing the peritoneum using 3-0 Vicryl suture in running fashion. The rectus muscles were reapproximated using 3-0 Vicryl suture in interrupted fashion. The fascia was reapproximated using 0 Vicryl suture in running fashion. Subcutaneous tissue was reapproximated using 3-0 plain interrupted subcutaneous stitch and skin reapproximated using 4-0 Monocryl in a running subcuticular. Dermabond was applied to incision and sterile dressing with adhesive white tape. The patient tolerated the procedure well and was taken to recovery area in stable condition. Lap and sponge counts were correct at the end of procedure. Instrument counts correct as well. Two grams of Ancef given preoperatively for infection prophylaxis. Job ID: [id number] DocumentID: [id number] Dictated Date: 05/10/2020 14:39:54 Promotional Model Date: 05/10/2020 19:01:33 Dictated By: VALDO BROCK DO
[2020-05-10] MEDS: CATHETER FLUSH 10 ML SYR IV SCH (21:15)
[2020-05-10] MEDS: DOCUSATE SODIUM 100 MG (COLACE) CAP PO SCH (21:15)
[2020-05-11 00:07] VITALS: BP 117/65
[2020-05-11] MEDS: OXYTOCIN PRE-MIX DRIP 500 ML IV SCH (01:00)
[2020-05-11] MEDS: CATHETER FLUSH 10 ML SYR IV SCH ×2 (01:12→03:16)
[2020-05-11 03:11] VITALS: BP 118/68
[2020-05-11] MEDS ORDERED: IBUPROFEN 600 MG (MOTRIN) TAB PO ONE ×2 (03:13→08:25)
[2020-05-11] MEDS: KETOROLAC 30 MG/ML VIAL IV SCH ×2 (03:16→06:45)
[2020-05-11] MEDS: IBUPROFEN 600 MG (MOTRIN) TAB PO SCH ×4 (03:19→23:36)
[2020-05-11 05:39] LABS: BASOPHILS # (AUTO) 0.1 10^3/uL (0.0-0.1); BASOPHILS % (AUTO) 0 % (0-10); EOSINOPHILS # (AUTO) 0.1 10^3/uL (0.0-0.3); EOSINOPHILS % (AUTO) 0 % (0-10); HEMATOCRIT 32 % (35-52); HEMOGLOBIN 9.8 g/dL (11.5-16.0); LYMPHOCYTES # (AUTO) 2.5 10^3/uL (1.0-4.0); LYMPHOCYTES % (AUTO) 14 % (12-44); MEAN CORPUSCULAR HEMOGLOBIN 27 pg (25-34); MEAN CORPUSCULAR HGB CONC 31 g/dL (32-36); MEAN CORPUSCULAR VOLUME 89 fL (80-99); MEAN PLATELET VOLUME 11.2 fL (9.0-12.2); MONOCYTES # (AUTO) 1.2 10^3/uL (0.0-1.0); MONOCYTES % (AUTO) 7 % (0-12); NEUTROPHILS # (AUTO) 13.6 10^3/uL (1.8-7.8); NEUTROPHILS % (AUTO) 78 % (42-75); PLATELET COUNT 290 10^3/uL (130-400); WHITE BLOOD COUNT 17.4 10^3/uL (4.3-11.0)
--- NOTE | 2020-05-11 07:16 | Anesthesia-Regional Post-Op ---
Regional Patient Condition Mental Status: Alert, Oriented x3 Circulation: Same as Pre-Op Headache: Absent Sensation: Full Recovery Motor Block: Absent Post Op Complications Complications None Follow Up Care/Instructions Patient Instructions None needed. Anesthesia/Patient Condition Patient is doing well, no complaints, stable vital signs, no apparent adverse anesthesia problems. No complications reported per nursing. D/C home per [facility] Criteria: JANELL Barrientos CRNA May 11, 2020 07:16
--- NOTE | 2020-05-11 07:18 | Postpartum Progress Note ---
Note Note Day # 1 Subjective: Patient is without complaints. Ambulating, voiding. Tolerating a regular diet without nausea or vomiting. Normal lochia. Pain is well controlled with oral pain medications. Objective: Physical Exam: General - Alert and oriented, no apparent distress Abdomen - Soft, appropriately tender to palpation, non-distended, fundus firm at umbilicus Extremities - no edema, negative Brigette's bilaterally Incision- c/d/i Assessment: POD 1 RLTCS Acute blood loss anemia Plan: Routine care. Encourage breast feeding. Encourage ambulation. Ferrous sulfate supplementation. Plan for discharge tomorrow Vitals - Labs Vital Signs - I&O Vital Signs Date Time Temp Pulse Resp B/P (MAP) Pulse Ox O2 Delivery O2 Flow Rate FiO2 05/11/20 03:11 36.5 90 18 118/68 (85) 95 Room Air 05/11/20 00:07 36.4 89 18 117/65 (82) 97 Room Air 05/10/20 21:13 36.1 99 18 111/73 (86) 96 Room Air 05/10/20 16:00 36.3 103 18 120/69 (86) 97 Room Air 05/10/20 15:04 Room Air 05/10/20 14:57 36.3 74 18 104/60 (75) Room Air 05/10/20 14:38 36.1 20 133/56 (81) 100 Room Air 05/10/20 14:38 Room Air 05/10/20 14:26 Room Air 05/10/20 14:26 36.2 20 139/62 (87) 99 Room Air 05/10/20 14:11 Room Air 05/10/20 14:11 36.1 20 125/108 (114) 99 Room Air 05/10/20 13:56 36.0 18 125/72 (89) 99 Room Air 05/10/20 13:56 Room Air 05/10/20 13:41 35.8 18 141/75 (97) 99 Room Air 05/10/20 13:41 Room Air 05/10/20 10:30 36.7 96 18 97 Room Air I & O 05/11/20 07:00 Intake Total 2100 ml Output Total 2080 ml Balance 20 ml Labs Laboratory Tests 05/10/20 10:55: White Blood Count 14.3H, Red Blood Count 4.06, Hemoglobin 11.1L, Hematocrit 35, Mean Corpuscular Volume 86, Mean Corpuscular Hemoglobin 27, Mean Corpuscular Hemoglobin Concent 32, Red Cell Distribution Width 13.5, Platelet Count 313, Mean Platelet Volume 11.3, Immature Granulocyte % (Auto) 1, Neutrophils (%) (Auto) 73, Lymphocytes (%) (Auto) 19, Monocytes (%) (Auto) 5, Eosinophils (%) (Auto) 1, Basophils (%) (Auto) 0, Neutrophils # (Auto) 10.5H, Lymphocytes # (Auto) 2.8, Monocytes # (Auto) 0.7, Eosinophils # (Auto) 0.2, Basophils # (Auto) 0.1, Immature Granulocyte # (Auto) 0.1, Neutrophils % (Manual) 78, Lymphocytes % (Manual) 15, Monocytes % (Manual) 3, Eosinophils % (Manual) 0, Basophils % (Manual) 0, Myelocytes % , Band Neutrophils 4, Blood Morphology Comment NORMAL 05/11/20 05:23: White Blood Count 17.4H, Red Blood Count 3.58L, Hemoglobin 9.8L, Hematocrit 32L, Mean Corpuscular Volume 89, Mean Corpuscular Hemoglobin 27, Mean Corpuscular Hemoglobin Concent 31L, Red Cell Distribution Width 14.0, Platelet Count 290, Mean Platelet Volume 11.2, Immature Granulocyte % (Auto) 1, Neutrophils (%) (Auto) 78H, Lymphocytes (%) (Auto) 14, Monocytes (%) (Auto) 7, Eosinophils (%) (Auto) 0, Basophils (%) (Auto) 0, Neutrophils # (Auto) 13.6H, Lymphocytes # (Auto) 2.5, Monocytes # (Auto) 1.2H, Eosinophils # (Auto) 0.1, Basophils # (Auto) 0.1, Immature Granulocyte # (Auto) 0.1 SPENCER BROCK DO May 11, 2020 07:18
[2020-05-11 08:32] VITALS: BP 123/81
[2020-05-11] MEDS: DOCUSATE SODIUM 100 MG (COLACE) CAP PO SCH ×2 (08:33→19:48)
[2020-05-11] MEDS: ACETAMINOPHEN 500 MG TAB (TYLENOL) PO PRN ×2 (11:06→19:49)
[2020-05-11] MEDS: SIMETHICONE 80 MG (MYLICON) CHEW PO SCH ×3 (11:06→23:36)
[2020-05-11 16:00] VITALS: BP 112/75
[2020-05-11 20:00] VITALS: BP 112/55
[2020-05-12] MEDS: ACETAMINOPHEN 500 MG TAB (TYLENOL) PO PRN (03:35)
[2020-05-12 03:36] VITALS: BP 110/65
[2020-05-12] MEDS: IBUPROFEN 600 MG (MOTRIN) TAB PO SCH ×2 (06:12→12:10)
--- NOTE | 2020-05-12 07:26 | Postpartum Progress Note ---
Note Note Day # 2 Subjective: Patient is without complaints. Ambulating, voiding. Tolerating a regular diet without nausea or vomiting. Normal lochia. Pain is well controlled with oral pain medications. Objective: Physical Exam: General - Alert and oriented, no apparent distress Abdomen - Soft, appropriately tender to palpation, non-distended, fundus firm at umbilicus Extremities - no edema, negative Brigette's bilaterally Incision- c/d/i Assessment: POD 2 RLTCS Plan: Routine care. Encourage breast feeding. Encourage ambulation. Ferrous sulfate supplementation. Plan for discharge today Vitals - Labs Vital Signs - I&O Vital Signs Date Time Temp Pulse Resp B/P (MAP) Pulse Ox O2 Delivery O2 Flow Rate FiO2 05/12/20 03:36 36.4 75 18 110/65 (80) 97 05/11/20 20:00 36.5 100 18 112/55 (74) 97 05/11/20 16:00 36.6 110 18 112/75 (87) 97 Room Air 05/11/20 08:32 36.6 98 18 123/81 (95) 99 Room Air Labs Microbiology 05/10/20 MRSA Screen - Final, Complete MRSA not isolated SPENCER BROCK DO May 12, 2020 07:26
[2020-05-12] MEDS: DOCUSATE SODIUM 100 MG (COLACE) CAP PO SCH (09:48)
[2020-05-12] MEDS: SIMETHICONE 80 MG (MYLICON) CHEW PO SCH (09:48)
[2020-05-12 09:50] VITALS: BP 113/80
== END 2020-05-12 12:55 | disposition home or self-care (01) | DRG 787 ==
LOC: LDRP 10:00
PROVIDERS: ADMIT Obstetrics & Gynecology; ATTEND Obstetrics & Gynecology
PROC: 10D00Z1 Extraction of Products of Conception, Low, Open Approach (ICD-10-PCS; principal; 2020-05-10 12:00)
DX: O34.211 Maternal care for low transverse scar from previous cesarean delivery (principal); D62 Acute posthemorrhagic anemia; O90.81 Anemia of the puerperium; O69.81X0 Labor and delivery complicated by cord around neck, without compression, not applicable or unspecified; O99.824 Streptococcus B carrier state complicating childbirth; Z3A.39 39 weeks gestation of pregnancy; Z37.0 Single live birth
CPT/HCPCS: 36415; 85007; 85025; 85027; 86850; 86900; 86901; 87081; 94664